=== PATIENT | male | born 1960 | race American Indian/Alaskan Native ===

== ENCOUNTER 2017-03-06 05:48 | Emergency (ER) | payer MEDICARE ==
[2017-03-06 06:29] LABS: Basophils % (Auto) 1.1 % (0.0-1.8); Eosinophils % (Auto) 7.2 % (0.0-4.3); Mean Corpuscular HGB Conc 30 % (32-34); Mean Corpuscular Volume 79 fl (84-94); Platelet Count 254 K/mm3 (140-440); Red Blood Count 5.13 M/mm3 (3.65-5.03); Red Cell Distribution Width 15.1 % (13.2-15.2); White Blood Count 8.2 K/mm3 (4.5-11.0)
[2017-03-06 06:30] LABS: Hematocrit 40.8 % (35.5-45.6); Hemoglobin 12.4 gm/dl (11.8-15.2); Mean Corpuscular Hemoglobin 24 pg (28-32)
[2017-03-06 06:46] LABS: Anion Gap 17 mmol/L; BUN/Creatinine Ratio 18.88; Blood Urea Nitrogen 17 mg/dL (9-20); Calcium 9.4 mg/dL (8.4-10.2); Carbon Dioxide 28 mmol/L (22-30); Chloride 99.2 mmol/L (98-107); Glucose 98 mg/dL (75-100); Potassium 4.3 mmol/L (3.6-5.0); Sodium 140 mmol/L (137-145)
[2017-03-06 10:56] VITALS: BP 135/80
[2017-03-06] MEDS ORDERED: BACTRIM DS PO ONE (10:58)
[2017-03-06] MEDS ORDERED: LASIX PO ONE (10:58)
[2017-03-06] MEDS ORDERED: KEFLEX PO ONE (10:58)
--- NOTE | 2017-03-06 12:23 | Emergency Department Report ---
HPI - General Chief Complaint: Extremity Injury, Lower Time Seen by Provider: 03/06/17 10:42 - HPI HPI: The patient is a 56-year-old male who presents for evaluation of right lower leg pain. The patient reports right lower leg pain for the past 2-3 weeks, constant and severe for the past one day, 2/10 in severity, burning in quality, exacerbated with weightbearing or ambulation. He also has experienced some weeping of clear fluid from the distal lower leg for the past 2 days. He shares that he has a long-standing history of chronic right lower leg ulcers, discoloration, and swelling for months. The patient denies fever, paresthesias , motor deficit in the legs, redness, purulent discharge. ED Past Medical Hx - Past Medical History Hx Asthma: Yes Additional medical history: Morbid Obesity - Surgical History Additional Surgical History: Keloid Removal From Face - Social History Smoking Status: Never Smoker Substance Use Type: None - Medications Home Medications: Home Medications Medication Instructions Recorded Confirmed Last Taken Type Cephalexin [Keflex] 500 mg PO QID #30 capsule 03/06/17 Unknown Rx Furosemide [Lasix TAB] 40 mg PO QDAY #30 tablet 03/06/17 Unknown Rx Sulfamethoxazole/Trimethoprim 1 each PO BID #20 tablet 03/06/17 Unknown Rx [Bactrim DS TAB] ED Review of Systems ROS: Stated complaint: RT LEG PAIN Other details as noted in HPI Constitutional: denies: fever ENT: denies: throat or neck pain Respiratory: denies: cough, shortness of breath Cardiovascular: denies: chest pain Endocrine: denies unexplained weight loss or gain Gastrointestinal: denies: abdominal pain, nausea Genitourinary: denies: dysuria Musculoskeletal: reports leg pain and leg swelling Skin: denies: rash Neurological: denies: headache Hematological/Lymphatic: denies: easy bleeding or easy bruising Psych: denies sadness or hopelessness Physical Exam - Physical Exam Vital Signs: Vital Signs 03/06/17 03/06/17 05:53 10:55 Temperature 98.1 F 98.6 F Pulse Rate 84 94 H Respiratory 18 16 Rate Blood Pressure 201/95 Blood Pressure 135/80 [Right] O2 Sat by Pulse 94 95 Oximetry Physical Exam: General: well-nourished, well-developed, no acute distress Head: Normocephalic, atraumatic Eyes: normal sclera ENT: Mucous membranes are pink and moist Neck: trachea midline, neck supple, No neck stiffness, no cervical adenopathy Respiratory: Breath sounds equal bilaterally, no wheezing, rales, or rhonchi Cardio: S1 and S2 present, no murmurs, rubs, gallops, capillary refill is brisk Abdomen: Normoactive bowel sounds, soft abdomen, no rigidity, no guarding or rebound tenderness Musc: Circumferential purplish discoloration to the bilateral distal lower legs present, consistent with chronic venous insufficiency, ulcers present to the bilateral lower legs, 1+ pitting edema to bilateral lower legs present, bilateral lower legs tender to palpation, mild lateral erythema of the right distal lower leg, no purulent drainage or discharge, distal pulses, sensation, motor function intact in the legs or feet bilaterally. Skin: No rash Neuro: no facial drooping, normal speech Psych: Normal affect ED Course Vital Signs 03/06/17 03/06/17 05:53 10:55 Temperature 98.1 F 98.6 F Pulse Rate 84 94 H Respiratory 18 16 Rate Blood Pressure 201/95 Blood Pressure 135/80 [Right] O2 Sat by Pulse 94 95 Oximetry ED Medical Decision Making - Lab Data Result diagrams: 03/06/17 06:13 03/06/17 06:13 - Medical Decision Making The patient was seen and examined by myself. The patient is placed on a cashier greeter and continuous pulse ox. On initial evaluation, the patient was found to be in no distress. The patient declines pain medicine. The patient is given Lasix for treatment of swelling and Keflex and Bactrim for treatment of cellulitis. The patient was reevaluated and reported that their symptoms were markedly improved. The patient is stable for discharge with outpatient follow-up. The patient is given follow-up and return instructions. The patient expressed understanding and agreed with the plan. The patient is discharged in stable condition. Critical care attestation.: If time is entered above; I have spent that time in minutes in the direct care of this critically ill patient, excluding procedure time. ED Disposition Clinical Impression: Chronic venous insufficiency, Cellulitis of right lower leg, Pain of right lower leg, Localized swelling of both lower legs Disposition: -01 TO HOME OR SELFCARE Is pt being admited?: No Does the pt Need Aspirin: No Condition: Stable Instructions: Cellulitis (ED), Acute Wound Care (ED), Stasis Dermatitis (ED) Prescriptions: Cephalexin [Keflex] 500 mg PO QID #30 capsule Furosemide [Lasix TAB] 40 mg PO QDAY #30 tablet Sulfamethoxazole/Trimethoprim [Bactrim DS TAB] 1 each PO BID #20 tablet Referrals: [facility] [Other] - 3-5 Days [facility] [Provider Group] - 3-5 Days SUN COTA MD [Staff Physician] - 3-5 Days [facility] [Outside] - 3-5 Days Time of Disposition: 12:21
== END 2017-03-06 12:41 | disposition home or self-care (01) ==
LOC: ED 05:48
DX: I87.2 Venous insufficiency (chronic) (peripheral) (principal); L03.115 Cellulitis of right lower limb; J45.909 Unspecified asthma, uncomplicated; E66.01 Morbid (severe) obesity due to excess calories
CPT/HCPCS: 36415; 80048; 85025; 99283

== ENCOUNTER 2017-04-30 08:13 | Outpatient (CLI) | payer MEDICARE ==
[2017-04-30] MEDS ORDERED: XYLOCAINE TOPICAL 4% TP ONE ×2 (09:17→09:21)
[2017-04-30] MEDS ORDERED: AD OINTMENT TP ONE (09:51)
[2017-04-30] MEDS ORDERED: AD OINTMENT TP SCH (10:00)
== END 2017-04-30 08:14 | disposition home or self-care (01) ==
LOC: WOUND 08:13
PROVIDERS: ATTEND Internal Medicine
DX: I87.311 Chronic venous hypertension (idiopathic) with ulcer of right lower extremity (principal); L97.811 Non-pressure chronic ulcer of other part of right lower leg limited to breakdown of skin; E66.01 Morbid (severe) obesity due to excess calories; J45.30 Mild persistent asthma, uncomplicated; Z68.43 Body mass index [BMI] 50.0-59.9, adult; Z87.891 Personal history of nicotine dependence
CPT/HCPCS: 11042; 11045; 11721; 87075; 87076; 87116; 87186; G0463; A6250

== ENCOUNTER 2017-05-07 08:07 | Outpatient (CLI) | payer MEDICARE ==
[2017-05-07] MEDS ORDERED: XYLOCAINE TOPICAL 4% TP ONE ×2 (08:35→08:39)
== END 2017-05-07 08:08 | disposition home or self-care (01) ==
LOC: WOUND 08:07
PROVIDERS: ATTEND Internal Medicine
DX: I87.311 Chronic venous hypertension (idiopathic) with ulcer of right lower extremity (principal); L97.811 Non-pressure chronic ulcer of other part of right lower leg limited to breakdown of skin; E66.01 Morbid (severe) obesity due to excess calories; Z68.43 Body mass index [BMI] 50.0-59.9, adult; Z87.891 Personal history of nicotine dependence

== ENCOUNTER 2017-05-14 08:15 | Outpatient (CLI) | payer MEDICARE ==
[2017-05-14] MEDS ORDERED: XYLOCAINE TOPICAL 4% TP ONE (08:37)
== END 2017-05-14 08:16 | disposition home or self-care (01) ==
LOC: WOUND 08:15
PROVIDERS: ATTEND Internal Medicine
DX: I87.311 Chronic venous hypertension (idiopathic) with ulcer of right lower extremity (principal); L97.811 Non-pressure chronic ulcer of other part of right lower leg limited to breakdown of skin; E66.01 Morbid (severe) obesity due to excess calories; J45.30 Mild persistent asthma, uncomplicated; B35.1 Tinea unguium; Z87.891 Personal history of nicotine dependence; Z68.43 Body mass index [BMI] 50.0-59.9, adult
CPT/HCPCS: 11055

== ENCOUNTER 2017-05-14 09:54 | Outpatient (CLI) | payer MEDICARE ==
--- NOTE | 2017-05-15 07:58 | Vascular Lab Report ---
LOWER EXTREMITY ARTERIAL DUPLEX: REASON FOR EXAM: Peripheral arterial disease/leg pain. COMMENTS ON THE RIGHT: Triphasic waveforms are seen proximally. Triphasic waveforms are seen distally. No significant velocity gradients are identified. No focal significant plaque is identified. Findings are consistent with normal perfusion. Findings are consistent with the ability to heal distal wounds. COMMENTS ON THE LEFT: Triphasic waveforms are seen proximally. Triphasic waveforms are seen distally. No significant velocity gradients are identified. No focal significant plaque is identified. Findings are consistent with normal perfusion. Findings are consistent with the ability to heal distal wounds. IMPRESSION: RIGHT: Essentially normal arterial flow. LEFT:Essentially normal arterial flow.
--- NOTE | 2017-05-15 08:07 | Vascular Lab Report ---
LOWER EXTREMITY VENOUS DUPLEX: REASON FOR EXAM: Pain of the lower extremities. COMMENTS ON THE RIGHT: All veins visualized are freely compressible without evidence of internal echogenicity. Flow is spontaneous and phasic throughout. COMMENTS ON THE LEFT: All veins visualized are freely compressible without evidence of internal echogenicity. Flow is spontaneous and phasic throughout. IMPRESSION: No evidence of acute or chronic deep venous thrombosis in either lower extremity.
== END 2017-05-14 09:55 | disposition home or self-care (01) ==
LOC: VAS 09:54
PROVIDERS: ATTEND Internal Medicine
DX: M79.605 Pain in left leg (principal); M79.604 Pain in right leg
CPT/HCPCS: 93925; 93970

== ENCOUNTER 2017-05-21 08:17 | Outpatient (CLI) | payer MEDICARE ==
[2017-05-21] MEDS ORDERED: XYLOCAINE TOPICAL 4% TP ONE ×2 (08:26→08:29)
== END 2017-05-21 08:18 | disposition home or self-care (01) ==
LOC: WOUND 08:17
PROVIDERS: ATTEND Surgery
DX: I87.311 Chronic venous hypertension (idiopathic) with ulcer of right lower extremity (principal); L97.811 Non-pressure chronic ulcer of other part of right lower leg limited to breakdown of skin; J45.30 Mild persistent asthma, uncomplicated; E66.01 Morbid (severe) obesity due to excess calories; Z68.43 Body mass index [BMI] 50.0-59.9, adult; Z87.891 Personal history of nicotine dependence

== ENCOUNTER 2017-06-04 08:25 | Outpatient (CLI) | payer MEDICARE ==
[2017-06-04] MEDS ORDERED: XYLOCAINE TOPICAL 4% TP ONE ×2 (08:44→11:58)
[2017-06-04] MEDS ORDERED: AD OINTMENT TP ONE (08:44)
[2017-06-04 10:35] LABS: Hematocrit 39.5 % (35.5-45.6); Hemoglobin 11.9 gm/dl (11.8-15.2); Mean Corpuscular HGB Conc 30 % (32-34); Mean Corpuscular Hemoglobin 24 pg (28-32); Mean Corpuscular Volume 78 fl (84-94); Platelet Count 212 K/mm3 (140-440); Red Blood Count 5.04 M/mm3 (3.65-5.03); Red Cell Distribution Width 14.9 % (13.2-15.2); White Blood Count 6.9 K/mm3 (4.5-11.0)
[2017-06-04 11:00] LABS: Alanine Aminotransferase 12 units/L (7-56); Albumin 3.6 g/dL (3.9-5); Albumin/Globulin Ratio 0.8 %; Alkaline Phosphatase 52 units/L (35-129); Anion Gap 17 mmol/L; BUN/Creatinine Ratio 20; Blood Urea Nitrogen 16 mg/dL (9-20); Calcium 8.9 mg/dL (8.4-10.2); Carbon Dioxide 27 mmol/L (22-30); Chloride 101.8 mmol/L (98-107); Glucose 90 mg/dL (75-100); Potassium 4.4 mmol/L (3.6-5.0); Sodium 141 mmol/L (137-145); Total Protein 7.9 g/dL (6.3-8.2)
[2017-06-04] MEDS ORDERED: AD OINTMENT TP SCH (12:00)
== END 2017-06-04 08:26 | disposition home or self-care (01) ==
LOC: WOUND 08:25
PROVIDERS: ATTEND Internal Medicine
DX: I87.311 Chronic venous hypertension (idiopathic) with ulcer of right lower extremity (principal); L97.811 Non-pressure chronic ulcer of other part of right lower leg limited to breakdown of skin; I10 Essential (primary) hypertension; E66.01 Morbid (severe) obesity due to excess calories; J45.30 Mild persistent asthma, uncomplicated; I87.2 Venous insufficiency (chronic) (peripheral); B35.1 Tinea unguium; F17.200 Nicotine dependence, unspecified, uncomplicated; Z68.43 Body mass index [BMI] 50.0-59.9, adult
CPT/HCPCS: 36415; 80053; 84153; 85027; A6250

== ENCOUNTER 2017-06-12 08:56 | Outpatient (CLI) | payer MEDICARE ==
[2017-06-12] MEDS ORDERED: XYLOCAINE TOPICAL 4% TP ONE (09:23)
== END 2017-06-12 08:57 | disposition home or self-care (01) ==
LOC: WOUND 08:56
PROVIDERS: ATTEND Surgery
DX: I87.311 Chronic venous hypertension (idiopathic) with ulcer of right lower extremity (principal); L97.811 Non-pressure chronic ulcer of other part of right lower leg limited to breakdown of skin; I10 Essential (primary) hypertension; E66.01 Morbid (severe) obesity due to excess calories; J45.30 Mild persistent asthma, uncomplicated; B35.1 Tinea unguium; Z68.43 Body mass index [BMI] 50.0-59.9, adult; Z87.891 Personal history of nicotine dependence

== ENCOUNTER 2018-10-22 08:07 | Outpatient (CLI) | payer MEDICARE ==
[2018-10-22] MEDS ORDERED: XYLOCAINE TOPICAL 4% TP ONE (09:00)
[2018-10-22] MEDS ORDERED: AD OINTMENT TP SCH (09:00)
== END 2018-10-22 08:08 | disposition home or self-care (01) ==
LOC: WOUND 08:07
PROVIDERS: ATTEND Surgery
DX: I87.311 Chronic venous hypertension (idiopathic) with ulcer of right lower extremity (principal); L97.811 Non-pressure chronic ulcer of other part of right lower leg limited to breakdown of skin; I89.0 Lymphedema, not elsewhere classified; J45.909 Unspecified asthma, uncomplicated; I87.8 Other specified disorders of veins; B35.1 Tinea unguium; Z87.891 Personal history of nicotine dependence
CPT/HCPCS: 97597; 97598; A6250

== ENCOUNTER 2018-11-07 09:04 | Outpatient (CLI) | payer MEDICARE ==
--- NOTE | 2018-11-07 21:59 | Vascular Lab Report ---
PROCEDURE: VL VENOUS DUPLEX LE RT TECHNIQUE: Duplex Doppler sonography of the right . Foster scale imaging with and without compression, spectral waveform analysis with and without augmentation, and color flow Doppler were employed. HISTORY: Chronic venous hypertension (idiopathic)with ulcer of right lower COMPARISONS: None FINDINGS: Real-time ultrasound of the right leg was performed with attention to the venous vasculatur e. These images demonstrate no evidence of deep venous thrombus in the right common femoral vein, superf icial femoral vein, or popliteal vein. The calf veins were not seen due to patient body habitus and l imited mobility. There is deep venous reflux of the right common femoral vein 3242 ms. No evidence of superficial venous reflux was seen. No DVT in right leg This document is electronically signed by Thaddeus Pryor MD., Nov 07 2018 09:56:52 PM ET
== END 2018-11-07 09:05 | disposition home or self-care (01) ==
LOC: VAS 09:04
PROVIDERS: ATTEND Surgery
DX: I87.311 Chronic venous hypertension (idiopathic) with ulcer of right lower extremity (principal); J45.909 Unspecified asthma, uncomplicated

== ENCOUNTER 2018-11-12 09:06 | Outpatient (CLI) | payer MEDICARE | END 2018-11-12 09:07 | disposition home or self-care (01) | LOC: WOUND 09:06 | PROVIDERS: ATTEND Surgery | DX: I87.311 Chronic venous hypertension (idiopathic) with ulcer of right lower extremity (principal); L97.811 Non-pressure chronic ulcer of other part of right lower leg limited to breakdown of skin; I89.0 Lymphedema, not elsewhere classified; L84 Corns and callosities; I87.8 Other specified disorders of veins; J45.909 Unspecified asthma, uncomplicated; B35.1 Tinea unguium; Z87.891 Personal history of nicotine dependence | CPT/HCPCS: 99214; G0463 ==

== ENCOUNTER 2018-11-26 08:48 | Outpatient (CLI) | payer MEDICARE ==
[2018-11-26] MEDS ORDERED: XYLOCAINE TOPICAL 4% TP ONE (08:52)
== END 2018-11-26 08:49 | disposition home or self-care (01) ==
LOC: WOUND 08:48
PROVIDERS: ATTEND Surgery
DX: I87.311 Chronic venous hypertension (idiopathic) with ulcer of right lower extremity (principal); L97.811 Non-pressure chronic ulcer of other part of right lower leg limited to breakdown of skin; I89.0 Lymphedema, not elsewhere classified; L84 Corns and callosities; I87.8 Other specified disorders of veins; J45.909 Unspecified asthma, uncomplicated; B35.1 Tinea unguium; Z87.891 Personal history of nicotine dependence

== ENCOUNTER 2018-12-03 08:30 | Outpatient (CLI) | payer MEDICARE ==
[2018-12-03] MEDS ORDERED: XYLOCAINE TOPICAL 4% TP ONE (09:00)
== END 2018-12-03 08:31 | disposition home or self-care (01) ==
LOC: WOUND 08:30
PROVIDERS: ATTEND Surgery
DX: I87.311 Chronic venous hypertension (idiopathic) with ulcer of right lower extremity (principal); L97.811 Non-pressure chronic ulcer of other part of right lower leg limited to breakdown of skin; I89.0 Lymphedema, not elsewhere classified; L84 Corns and callosities; I87.8 Other specified disorders of veins; J45.909 Unspecified asthma, uncomplicated; B35.1 Tinea unguium; Z87.891 Personal history of nicotine dependence

== ENCOUNTER 2018-12-10 08:24 | Outpatient (CLI) | payer MEDICARE ==
[2018-12-10] MEDS ORDERED: XYLOCAINE TOPICAL 4% TP ONE (09:00)
[2018-12-10] MEDS ORDERED: AD OINTMENT TP PRN (09:00)
== END 2018-12-10 08:25 | disposition home or self-care (01) ==
LOC: WOUND 08:24
PROVIDERS: ATTEND Surgery
DX: I87.311 Chronic venous hypertension (idiopathic) with ulcer of right lower extremity (principal); L97.811 Non-pressure chronic ulcer of other part of right lower leg limited to breakdown of skin; I89.0 Lymphedema, not elsewhere classified; L84 Corns and callosities; I87.8 Other specified disorders of veins; J45.909 Unspecified asthma, uncomplicated; B35.1 Tinea unguium; Z87.891 Personal history of nicotine dependence
CPT/HCPCS: A6250

== ENCOUNTER 2018-12-17 08:23 | Outpatient (CLI) | payer MEDICARE ==
[2018-12-17] MEDS ORDERED: XYLOCAINE TOPICAL 4% TP ONE (09:00)
== END 2018-12-17 08:24 | disposition home or self-care (01) ==
LOC: WOUND 08:23
PROVIDERS: ATTEND Surgery
DX: I87.311 Chronic venous hypertension (idiopathic) with ulcer of right lower extremity (principal); L97.811 Non-pressure chronic ulcer of other part of right lower leg limited to breakdown of skin; I89.0 Lymphedema, not elsewhere classified; L84 Corns and callosities; I87.8 Other specified disorders of veins; J45.909 Unspecified asthma, uncomplicated; B35.1 Tinea unguium; Z87.891 Personal history of nicotine dependence

== ENCOUNTER 2018-12-31 08:32 | Outpatient (CLI) | payer MEDICARE | END 2018-12-31 08:33 | disposition home or self-care (01) | LOC: WOUND 08:32 | PROVIDERS: ATTEND Surgery | DX: I87.311 Chronic venous hypertension (idiopathic) with ulcer of right lower extremity (principal); L97.811 Non-pressure chronic ulcer of other part of right lower leg limited to breakdown of skin; I89.0 Lymphedema, not elsewhere classified; L84 Corns and callosities; I87.8 Other specified disorders of veins; J45.909 Unspecified asthma, uncomplicated; B35.1 Tinea unguium; Z87.891 Personal history of nicotine dependence | CPT/HCPCS: 99213; G0463 ==

== ENCOUNTER 2020-06-07 08:47 | Observation (INO) | payer OTHER, MEDICARE ==
--- NOTE | 2020-06-07 15:08 | Event Note ---
ED Screening Note ED Screening Note: had a slip and fall two weeks ago and had an abrasion to his RLE which is now infected +drainage, +increased warmth, +edema previously used to see wound care, has an appt on sunday06/14/2020 This initial assessment/diagnostic orders/clinical plan/treatment(s) is/are subject to change based on patients health status, clinical progression and re- assessment by fellow clinical providers in the ED. Further treatment and workup at subsequent clinical providers discretion. Patient/guardian urged not to elope from the ED as their condition may be serious if not clinically assessed and managed. Initial orders include: labs, XR, US
--- NOTE | 2020-06-07 15:52 | XRay Report ---
RIGHT TIBIA AND FIBULA, AP AND LATERAL VIEWS INDICATION: right leg wound. COMPARISON: No relevant prior imaging study available. FINDINGS: At the right knee there is advanced tricompartmental degenerative change, this is in stage of the med ial compartment. Advanced degenerative changes noted at the ankle/hindfoot with advanced flatfoot def ormity. No acute fracture is identified. There is diffuse soft tissue swelling in the right calf. No definite soft tissue gas. IMPRESSION: 1. Diffuse soft tissue swelling, no soft tissue gas or foreign bodies. Signer Name: Fortunato Yen MD Signed: 06/07/2020 3:47 PM Workstation Name: [id number]
[2020-06-07 16:00] LABS: Hematocrit 34.3 % (35.5-45.6); Hemoglobin 10.5 gm/dl (11.8-15.2); Mean Corpuscular HGB Conc 31 % (32-34); Mean Corpuscular Volume 79 fl (84-94); Platelet Count 229 K/mm3 (140-440); Red Blood Count 4.36 M/mm3 (3.65-5.03); Red Cell Distribution Width 17.3 % (13.2-15.2)
[2020-06-07 16:16] LABS: Alanine Aminotransferase 7 units/L (7-56); Albumin 3.2 g/dL (3.9-5); BUN/Creatinine Ratio 23; Blood Urea Nitrogen 21 mg/dL (9-20); Calcium 9.6 mg/dL (8.4-10.2); Hemolysis Index 13
--- NOTE | 2020-06-07 16:19 | Vascular Lab Report ---
DUPLEX DOPPLER LOWER EXTREMITY VEINS, RIGHT INDICATION / CLINICAL INFORMATION: RLE edema and pain. TECHNIQUE: Duplex doppler imaging was performed through the veins of the right lower extremity using venous comp ression and other maneuvers. COMPARISON: None available. FINDINGS: RIGHT COMMON FEMORAL VEIN: Negative. RIGHT FEMORAL VEIN: Negative. RIGHT POPLITEAL VEIN: Negative. RIGHT CALF VEINS: Negative. ADDITIONAL FINDINGS: There is diffuse subcutaneous edema with apparent pitting. IMPRESSION: 1. The exam is limited due to patient body habitus and extensive subcutaneous edema. Accounting for t his, no sonographic evidence for DVT in the right lower extremity. Signer Name: Fortunato Yen MD Signed: 06/07/2020 4:14 PM Workstation Name: [id number]
[2020-06-07 16:43] LABS: Band Neutrophils # (Manual) 0.1 K/mm3; Total Cells Counted 100
[2020-06-07 16:44] LABS: Anisocytosis 1+; Hypochromasia 1+; Large Platelets Few; Platelet Estimate Consistent w Auto
[2020-06-07] MEDS ORDERED: SULFAMETHOXAZOLE/TRIMETHOPRIM 800/160MG DS TAB PO ONE (19:23)
[2020-06-07] MEDS ORDERED: cephALEXin 500 MG CAP PO ONE (19:23)
--- NOTE | 2020-06-07 19:26 | Emergency Department Report ---
- General Chief complaint: Wound/Laceration Stated complaint: WOUND DRAINING RT CALF Time Seen by Provider: 06/07/20 15:03 Source: patient Mode of arrival: Wheelchair Limitations: No Limitations - History of Present Illness Initial comments: This is a 59-year-old male nontoxic, well nourished in appearance, no acute signs of distress presents to the ED with c/o of redness, swelling, and pain to right lower leg. Patient stated he had a fall about 2 weeks ago and caused an abrasion but no follow-up with a provider which then developed the symptoms. Patient stated has chronic right leg cellulites and had seen auto adjudication specialist but that was a year ago. Patient stated has some draining. Patient denies any fever, chills, nausea, vomiting, chest pain, shortness of breath, headache or stiff neck. Patient denies any allergies. MD complaint: other (cellulitis ) -: week(s) Tetanus Up to Date: yes (2016 as per patient) Location: RLE Severity: mild Severity scale (0 -10): 8 Quality: aching Consistency: constant Improves with: none Worsens with: none Context: none Associated symptoms: denies other symptoms Treatments Prior to Arrival: none - Related Data Previous Rx's Medication Instructions Recorded Last Taken Type Furosemide [Lasix TAB] 40 mg PO QDAY #30 tablet 03/06/17 Unknown Rx Sulfamethoxazole/Trimethoprim 1 each PO BID #20 tablet 03/06/17 Unknown Rx [Bactrim DS TAB] cephALEXin [Keflex] 500 mg PO QID #30 capsule 03/06/17 Unknown Rx Allergies Allergy/AdvReac Type Severity Reaction Status Date / Time No Known Allergies Allergy Verified 06/07/20 08:51 Abscess Boil HPI - HPI Chief Complaint: Wound/Laceration Stated Complaint: WOUND DRAINING RT CALF Time Seen by Provider: 06/07/20 15:03 Home Medications: Previous Rx's Medication Instructions Recorded Last Taken Type Furosemide [Lasix TAB] 40 mg PO QDAY #30 tablet 03/06/17 Unknown Rx Sulfamethoxazole/Trimethoprim 1 each PO BID #20 tablet 03/06/17 Unknown Rx [Bactrim DS TAB] cephALEXin [Keflex] 500 mg PO QID #30 capsule 03/06/17 Unknown Rx Allergies/Adverse Reactions: Allergies Allergy/AdvReac Type Severity Reaction Status Date / Time No Known Allergies Allergy Verified 06/07/20 08:51 ED Review of Systems ROS: Stated complaint: WOUND DRAINING RT CALF Other details as noted in HPI Comment: All other systems reviewed and negative Constitutional: denies: chills, fever Eyes: denies: eye pain, eye discharge, vision change ENT: denies: ear pain, throat pain Respiratory: denies: cough, shortness of breath, wheezing Cardiovascular: denies: chest pain, palpitations Endocrine: no symptoms reported Gastrointestinal: denies: abdominal pain, nausea, diarrhea Genitourinary: denies: urgency, dysuria Musculoskeletal: denies: back pain, joint swelling, arthralgia Skin: denies: rash, lesions Neurological: denies: headache, weakness, paresthesias Psychiatric: denies: anxiety, depression Hematological/Lymphatic: denies: easy bleeding, easy bruising ED Past Medical Hx - Past Medical History Hx Asthma: Yes Additional medical history: Morbid Obesity - Surgical History Additional Surgical History: Keloid Removal From Face - Social History Smoking Status: Never Smoker Substance Use Type: None - Medications Home Medications: Home Medications Medication Instructions Recorded Confirmed Last Taken Type Furosemide [Lasix TAB] 40 mg PO QDAY #30 tablet 03/06/17 Unknown Rx Sulfamethoxazole/Trimethoprim 1 each PO BID #20 tablet 03/06/17 Unknown Rx [Bactrim DS TAB] cephALEXin [Keflex] 500 mg PO QID #30 capsule 03/06/17 Unknown Rx ED Physical Exam - General Limitations: No Limitations General appearance: alert, in no apparent distress - Head Head exam: Present: atraumatic, normocephalic - Eye Eye exam: Present: normal appearance - Neck Neck exam: Present: normal inspection, full ROM. Absent: tenderness, meningismus, lymphadenopathy - Respiratory Respiratory exam: Absent: respiratory distress - Cardiovascular Cardiovascular Exam: Present: regular rate - Extremities Exam Extremities exam: Present: normal inspection, full ROM, tenderness, normal capillary refill, pedal edema. Absent: calf tenderness - Expanded Lower Extremity Exam Right Hip exam: Present: normal inspection, full ROM. Absent: tenderness, swelling Upper Leg exam: Present: normal inspection, full ROM. Absent: tenderness, swelling Knee exam: Present: normal inspection, full ROM, full knee extension. Absent: tenderness, swelling, abrasion, laceration, ecchymosis, deformity, crepidus, dislocation, erythema, effusion, pain w/ pronation/supination, posterior draw sign, pain/laxity with valgus, pain/laxity with varus Lower Leg exam: Present: full ROM, tenderness, swelling, erythema. Absent: abrasion, laceration, ecchymosis, deformity, crepidus, dislocation, palpable cord, Abena's sign Ankle exam: Present: normal inspection, full ROM, tenderness, swelling, erythema. Absent: abrasion, laceration, ecchymosis, deformity, crepidus, dislocation, anterior draw sign Foot/Toe exam: Present: normal inspection, full ROM. Absent: tenderness, swelling, abrasion, laceration, ecchymosis, deformity, crepidus, dislocation, erythema, amputation, puncture wound, foreign body, calcaneal tenderness, tenderness at base of 5th metatarsal, nail avulsion, subungual hematoma Neuro vascular tendon exam: Present: no vascular compromise Gait: Positive: observed and limited by pain 1 - cellulitis presents with pustulous with drainage. Area has open about 3 cm x 3 cm open wound. - Back Exam Back exam: Present: normal inspection, full ROM - Neurological Exam Neurological exam: Present: alert, oriented X3 - Psychiatric Psychiatric exam: Present: normal affect, normal mood - Skin Skin exam: Present: warm, dry, intact, normal color. Absent: rash ED Course Vital Signs 06/07/20 06/07/20 06/07/20 08:51 17:00 18:56 Temperature 98.7 F 98.2 F Pulse Rate 94 H 88 Respiratory 22 20 18 Rate Blood Pressure 169/139 211/106 Blood Pressure [Right] O2 Sat by Pulse 97 97 Oximetry 06/07/20 21:19 Temperature Pulse Rate 93 H Respiratory 18 Rate Blood Pressure Blood Pressure 146/81 [Right] O2 Sat by Pulse 96 Oximetry - Reevaluation(s) Reevaluation #1: 06/07/20 19:25 Patient is speaking in full sentences with no signs of distress noted. - Consultations Consultation #1: 06/07/20 19:25 Patient has been consulted with Licha Treviño about patient history, physical exam, and labs and agrees for admission. Consultation #2: 06/07/20 19:44 Patient has been consulted with Dr. Alaniz (general surgery) about patient history, physical exam, and labs and agrees for admission with hospitalist. Consultation #3: 06/07/20 22:24 Patient has been consulted with Dr. Lucero about patient history, physical ex am, and labs and accepts patient to services. ED Medical Decision Making - Lab Data Result diagrams: 06/07/20 15:14 06/07/20 15:14 Lab Results 06/07/20 06/07/20 06/07/20 Range/Units 15:14 15:14 15:14 WBC 6.8 (4.5-11.0) K/mm3 RBC 4.36 (3.65-5.03) M/mm3 Hgb 10.5 L (11.8-15.2) gm/dl Hct 34.3 L (35.5-45.6) % MCV 79 L (84-94) fl MCH 24 L (28-32) pg MCHC 31 L (32-34) % RDW 17.3 H (13.2-15.2) % Plt Count 229 (140-440) K/mm3 Add Manual Diff Complete Total Counted 100 Seg Neuts % (Manual) 61.0 (40.0-70.0) % Band Neutrophils % 1.0 % Lymphocytes % (Manual) 29.0 (13.4-35.0) % Monocytes % (Manual) 5.0 (0.0-7.3) % Eosinophils % (Manual) 4.0 (0.0-4.3) % Nucleated RBC % Not Reportable Seg Neutrophils # Man 4.1 (1.8-7.7) K/mm3 Band Neutrophils # 0.1 K/mm3 Lymphocytes # (Manual) 2.0 (1.2-5.4) K/mm3 Abs React Lymphs (Man) 0.0 K/mm3 Monocytes # (Manual) 0.3 (0.0-0.8) K/mm3 Eosinophils # (Manual) 0.3 (0.0-0.4) K/mm3 Basophils # (Manual) 0.0 (0.0-0.1) K/mm3 Metamyelocytes # 0.0 K/mm3 Myelocytes # 0.0 K/mm3 Promyelocytes # 0.0 K/mm3 Blast Cells # 0.0 K/mm3 WBC Morphology Not Reportable Hypersegmented Neuts Not Reportable Hyposegmented Neuts Not Reportable Hypogranular Neuts Not Reportable Smudge Cells Not Reportable Toxic Granulation Not Reportable Toxic Vacuolation Not Reportable Dohle Bodies Not Reportable Pelger-Huet Anomaly Not Reportable Leah Rods Not Reportable Platelet Estimate Consistent w auto Clumped Platelets Not Reportable Plt Clumps, EDTA Not Reportable Large Platelets Few Giant Platelets Not Reportable Platelet Satelliting Not Reportable Plt Morphology Comment Not Reportable RBC Morphology Not Reportable Dimorphic RBCs Not Reportable Polychromasia Not Reportable Hypochromasia 1+ Poikilocytosis Not Reportable Anisocytosis 1+ Microcytosis Not Reportable Macrocytosis Not Reportable Spherocytes Not Reportable Pappenheimer Bodies Not Reportable Sickle Cells Not Reportable Target Cells Not Reportable Tear Drop Cells Not Reportable Ovalocytes Not Reportable Helmet Cells Not Reportable Singh-Tullos Bodies Not Reportable Brady Rings Not Reportable Katiana Cells Not Reportable Bite Cells Not Reportable Crenated Cell Not Reportable Elliptocytes Not Reportable Acanthocytes (Spur) Not Reportable Rouleaux Not Reportable Hemoglobin C Crystals Not Reportable Schistocytes Not Reportable Malaria parasites Not Reportable Luc Bodies Not Reportable Hem Pathologist Commnt No Sodium 138 (137-145) mmol/L Potassium 4.6 (3.6-5.0) mmol/L Chloride 100.9 (98-107) mmol/L Carbon Dioxide 29 (22-30) mmol/L Anion Gap 13 mmol/L BUN 21 H (9-20) mg/dL Creatinine 0.9 (0.8-1.3) mg/dL Estimated GFR > 60 ml/min BUN/Creatinine Ratio 23 % Glucose 88 (75-100) mg/dL Lactic Acid 1.00 (0.7-2.0) mmol/L Calcium 9.6 (8.4-10.2) mg/dL Total Bilirubin 0.60 (0.1-1.2) mg/dL AST 17 (5-40) units/L ALT 7 (7-56) units/L Alkaline Phosphatase 46 (35-129) units/L Total Protein 8.9 H (6.3-8.2) g/dL Albumin 3.2 L (3.9-5) g/dL Albumin/Globulin Ratio 0.6 % - Radiology Data Referring Physician: RUBIN HERNANDEZ Patient Name: RENO BURTON Date of : 1960 Sex: Male Report Date: 2020-06-07 Report Status: Finalized [facility] [address] [place] [address] XRay Report Signed Patient: RENO BURTON MR#: [id number] : 1960 Acct:[id number] Age/Sex: 59 / M ADM Date: 06/07/20 Loc: ED Attending Dr: Ordering Physician: EFE ESCOTO Date of Service: 06/07/20 Procedure(s): XR tibia fibula 2V RT Accession Number(s): [id number] cc: EFE ESCOTO Fluoro Time In Minutes: RIGHT TIBIA AND FIBULA, AP AND LATERAL VIEWS INDICATION: right leg wound. COMPARISON: No relevant prior imaging study available. FINDINGS: At the right knee there is advanced tricompartmental degenerative change, this is in stage of the medial compartment. Advanced degenerative changes noted at the ankle/hindfoot with advanced flatfoot deformity. No acute fracture is identified. There is diffuse soft tissue swelling in the right calf. No definite soft tissue gas. IMPRESSION: 1. Diffuse soft tissue swelling, no soft tissue gas or foreign bodies. Signer Name: Fortunato Yen MD Signed: 06/07/2020 3:47 PM Workstation Name: [id number] Transcribed By: Dictated By: Fortunato Yen MD Electronically Authenticated By: Fortunato Yen MD Signed Date/Time: 06/07/20 1547 DD/ 1546 TD/TT: Referring Physician: RUBIN HERNANDEZ Patient Name: RENO BURTON Date of : 1960 Sex: Male Report Date: 2020-06-07 Report Status: Finalized [facility] [address] [place] [address] Vascular Lab Report Signed Patient: RENO BURTON MR#: [id number] : 1960 Acct:[id number] Age/Sex: 59 / M ADM Date: 06/07/20 Loc: ED Attendin g Dr: Ordering Physician: EFE ESCOTO Date of Service: 06/07/20 Procedure(s): VL venous duplex LE RT Accession Number(s): [id number] cc: EFE ESCOTO DUPLEX DOPPLER LOWER EXTREMITY VEINS, RIGHT INDICATION / CLINICAL INFORMATION: RLE edema and pain. TECHNIQUE: Duplex doppler imaging was performed through the veins of the right lower extremity using venous compression and other maneuvers. COMPARISON: None available. FINDINGS: RIGHT COMMON FEMORAL VEIN: Negative. RIGHT FEMORAL VEIN: Negative. RIGHT POPLITEAL VEIN: Negative. RIGHT CALF VEINS: Negative. ADDITIONAL FINDINGS: There is diffuse subcutaneous edema with apparent pitting. IMPRESSION: 1. The exam is limited due to patient body habitus and extensive subcutaneous edema. Accounting for this, no sonographic evidence for DVT in the right lower extremity. Signer Name: Fortunato Yen MD Signed: 06/07/2020 4:14 PM Workstation Name: [id number] Transcribed By: Dictated By: Fortunato Yen MD Electronically Authenticated By: Fortunato Yen MD Signed Date/Time: 06/07/201613 DD/ 13 TD/TT: - Medical Decision Making 59-year-old male that presents with right leg cellulitis with drainage. Patient is stable and was examined by me. Patient consulted with Dr. Marquez and Dr. Alaniz which agrees for admission. Patient admitted with hospitalist. IV vancomycin and fluids has been administered. At time of admission, the patient does not seem toxic or ill in appearance. No acute signs of distress noted. Patient agrees to admission treatment plan of care. No further questions noted by the patient. Critical care attestation.: If time is entered above; I have spent that time in minutes in the direct care of this critically ill patient, excluding procedure time. ED Disposition Clinical Impression: Cellulitis of right lower leg Disposition: OP ADMIT IP TO THIS HOSP Is pt being admited?: Yes Condition: Stable Referrals: PRIMARY CARE, [Primary Care Provider] - 3-5 Days Time of Disposition: 19:50
[2020-06-07] MEDS ORDERED: VANCOMYCIN/NS 1 GM/250 ML 1 GM/250 ML BAG IV ONE (19:38)
[2020-06-07] MEDS ORDERED: VANCOMYCIN 2,000 MG in SODIUM CHLORIDE 0.9% 500 ML 500 ML IV ONE (20:00)
[2020-06-07] MEDS ORDERED: VANCOMYCIN PHARMACY TO DOSE IV SCH (23:45)
[2020-06-07] MEDS ORDERED: MORPHINE 2 MG/1 ML INJ IV PRN (23:57)
[2020-06-07] MEDS ORDERED: ONDANSETRON 4 MG/2 ML INJ IV PRN (23:57)
[2020-06-07] MEDS ORDERED: MAGNESIUM HYDROXIDE (MOM) ORAL LIQD UDC PO PRN (23:57)
--- NOTE | 2020-06-08 00:04 | History and Physical Report ---
History of Present Illness Date of examination: 06/07/20 Date of admission: 06/07/20 22:34 Chief complaint: Right lower extremity swelling Wound History of present illness: 59-year-old male with known history of asthma ,morbid obesity and chronic leg wound presenting to the emergency room today complaining of redness swelling and pain of the right lower extremity. He had a fall about 2 weeks ago which caused an abrasion over the light right lower extremity. He has not been following up in the wound care clinic lately and last follow-up was about a year ago. He has noticed some drainage from the wound. Patient denies any fever or chills, no nausea vomiting, no chest pain or shortness of breath, no abdominal pain, no hematuria or dysuria. He denies any headache or dizziness. Work-up in the emergency room today ultrasound of the right lower extremity was negative for DVT. X-ray of the right lower extremity reveals:. Diffuse soft tissue swelling, no soft tissue gas or foreign bodies. Patient admitted for cellulitis/wound on right lower extremity. He has been started on empiric IV antibiotics. Past History Past Medical History: other (Morbid obesity, asthma) Past Surgical History: Other (Keloid removal of face) Social history: no significant social history Medications and Allergies Allergies Allergy/AdvReac Type Severity Reaction Status Date / Time No Known Allergies Allergy Verified 06/07/20 08:51 Home Medications Medication Instructions Recorded Confirmed Last Taken Type Furosemide [Lasix TAB] 40 mg PO QDAY #30 tablet 03/06/17 Unknown Rx Sulfamethoxazole/Trimethoprim 1 each PO BID #20 tablet 03/06/17 Unknown Rx [Bactrim DS TAB] cephALEXin [Keflex] 500 mg PO QID #30 capsule 03/06/17 Unknown Rx Active Meds: Active Medications Acetaminophen (Acetaminophen 325 Mg Tab) 650 mg PO Q4H PRN PRN Reason: Pain MILD(1-3)/Fever >100.5/[facility] Magnesium Hydroxide (Magnesium Hydroxide (Mom) Oral Liqd Udc) 30 ml PO Q4H PRN PRN Reason: Constipation Morphine Sulfate (Morphine 2 Mg/1 Ml Inj) 2 mg IV Q4H PRN PRN Reason: Pain, Moderate (4-6) Ondansetron HCl (Ondansetron 4 Mg/2 Ml Inj) 4 mg IV Q8H PRN PRN Reason: Nausea And Vomiting Sodium Chloride (Sodium Chloride 0.9% 10 Ml Flush Syringe) 10 ml IV BID JONATHAN Sodium Chloride (Sodium Chloride 0.9% 10 Ml Flush Syringe) 10 ml IV PRN PRN PRN Reason: LINE FLUSH Review of Systems Constitutional: no fever, no chills Ears, nose, mouth and throat: no nasal congestion, no sore throat Cardiovascular: no chest pain, no palpitations Respiratory: no cough, no shortness of breath Gastrointestinal: no abdominal pain, no nausea, no vomiting, no diarrhea Genitourinary Male: no dysuria, no hematuria, no flank pain, no nocturia Musculoskeletal: no neck pain, no low back pain Integumentary: no rash, no pruritis Neurological: no headaches, no convulsions Psychiatric: no anxiety, no depression Exam - Constitutional Vitals: Temp Pulse Resp BP Pulse Ox 98.2 F 93 H 18 146/81 96 06/07/20 17:00 06/07/20 21:19 06/07/20 21:19 06/07/20 21:19 06/07/20 21:19 General appearance: Present: no acute distress, well-nourished, obese - EENT Eyes: Present: PERRL, EOM intact. Absent: scleral icterus ENT: hearing intact, clear oral mucosa, dentition normal - Neck Neck: Present: supple, normal ROM - Respiratory Respiratory effort: normal Respiratory: bilateral: CTA - Cardiovascular Rhythm: regular Heart Sounds: Present: S1 & S2. Absent: systolic murmur, diastolic murmur, rub - Extremities Extremities: no ischemia, pulses intact, pulses symmetrical, normal temperature, Full ROM Extremity abnormal: edema (2+ bilaterally), ulceration (On right leg,open wound on posterior and medial distal 1/3 of right leg.) Peripheral Pulses: within normal limits - Abdominal General gastrointestinal: Present: soft, non-tender, distended, normal bowel sounds. Absent: mass - Integumentary Integumentary: Present: clear, warm, dry. Absent: rash - Musculoskeletal Musculoskeletal: strength equal bilaterally - Psychiatric Psychiatric: appropriate mood/affect, intact judgment & insight, memory intact, cooperative - Neurologic Neurologic: CNII-XII intact, no focal deficits, moves all extremities Results - Labs CBC & Chem 7: 06/07/20 15:14 06/07/20 15:14 Labs: Abnormal lab results 06/07/20 06/07/20 Range/Units 15:14 15:14 Hgb 10.5 L (11.8-15.2) gm/dl Hct 34.3 L (35.5-45.6) % MCV 79 L (84-94) fl MCH 24 L (28-32) pg MCHC 31 L (32-34) % RDW 17.3 H (13.2-15.2) % BUN 21 H (9-20) mg/dL Total Protein 8.9 H (6.3-8.2) g/dL Albumin 3.2 L (3.9-5) g/dL Assessment and Plan - Patient Problems (1) Cellulitis of right lower leg Current Visit: Yes Status: Acute Plan to address problem: Patient commenced on empiric IV antibiotics. We will place consult to wound care team and surgery for evaluation and recomm endation. (2) DVT prophylaxis Current Visit: Yes Status: Acute Plan to address problem: Patient placed on sequential compression device. (3) Full code status Current Visit: Yes Status: Acute Plan to address problem: Patient is a full code.
[2020-06-08 06:24] LABS: Basophils % (Auto) 0.4 % (0.0-1.8); Eosinophils # (Auto) 0.4 K/mm3 (0.0-0.4); Eosinophils % (Auto) 6.2 % (0.0-4.3); Hematocrit 30.3 % (35.5-45.6); Hemoglobin 9.3 gm/dl (11.8-15.2); Lymphocytes # (Auto) 1.3 K/mm3 (1.2-5.4); Lymphocytes % (Auto) 18.6 % (13.4-35.0); Mean Corpuscular HGB Conc 31 % (32-34); Mean Corpuscular Volume 78 fl (84-94); Monocytes # (Auto) 0.5 K/mm3 (0.0-0.8); Monocytes % (Auto) 6.7 % (0.0-7.3); Platelet Count 215 K/mm3 (140-440); Red Blood Count 3.89 M/mm3 (3.65-5.03); Red Cell Distribution Width 17.3 % (13.2-15.2)
[2020-06-08 06:33] LABS: INR 1.04 (0.87-1.13)
[2020-06-08 06:36] LABS: BUN/Creatinine Ratio 24; Blood Urea Nitrogen 24 mg/dL (9-20); Calcium 9.3 mg/dL (8.4-10.2); Hemolysis Index 1
[2020-06-08] MEDS: VANCOMYCIN 2,000 MG in SODIUM CHLORIDE 0.9% 500 ML 500 ML IV SCH ×2 (09:36→22:19)
[2020-06-08] MEDS: ACETAMINOPHEN 325 MG TAB PO PRN ×3 (09:43→22:18)
--- NOTE | 2020-06-08 17:05 | Progress Note ---
Assessment and Plan - Patient Problems (1) Cellulitis of right lower leg Current Visit: Yes Status: Acute Plan to address problem: Continue IV antibiotics Wound care (2) DVT prophylaxis Current Visit: Yes Status: Acute Plan to address problem: On heparin and GI prophylaxis (3) Full code status Current Visit: Yes Status: Acute Subjective Date of service: 06/08/20 Principal diagnosis: Right lower extremity cellulitis Interval history: 59-year-old male with known history of asthma ,morbid obesity and chronic leg wound presenting to the emergency room today complaining of redness swelling and pain of the right lower extremity. He had a fall about 2 weeks ago which caused an abrasion over the light right lower extremity. He has not been following up in the wound care clinic lately and last follow-up was about a year ago. He has noticed some drainage from the wound. Patient denies any fever or chills, no nausea vomiting, no chest pain or shortness of breath, no abdominal pain, no hematuria or dysuria. He denies any headache or dizziness. Work-up in the emergency room today ultrasound of the right lower extremity was negative for DVT. X-ray of the right lower extremity reveals:. Diffuse soft tissue swelling, no soft tissue gas or foreign bodies. Patient admitted for cellulitis/wound on right lower extremity. He has been started on empiric IV antibiotics. Day 2 Patient doing slightly better Objective - Constitutional Vitals: Vital Signs - 12hr 06/08/20 06/08/20 06/08/20 05:53 07:43 09:00 Temperature 99.1 F 99.2 F Pulse Rate 88 88 96 H Respiratory 18 18 Rate Blood Pressure 132/62 146/64 O2 Sat by Pulse 94 93 98 Oximetry 06/08/20 06/08/20 06/08/20 10:43 11:59 16:40 Temperature 98.4 F 98.3 F Pulse Rate 88 84 Respiratory 18 18 18 Rate Blood Pressure 96/52 149/71 O2 Sat by Pulse 93 98 Oximetry General appearance: Present: no acute distress, well-nourished - EENT Eyes: PERRL, EOM intact ENT: hearing intact, clear oral mucosa Ears: bilateral: normal - Neck Neck: supple, normal ROM - Respiratory Respiratory effort: normal Respiratory: bilateral: CTA - Breasts Breasts: normal, other (edema (2+ bilaterally), ulceration (On right leg,open wound on posterior and medial distal 1/3 of right leg.)) - Cardiovascular Heart rate: 78 Rhythm: regular Heart Sounds: Present: S1 & S2. Absent: gallop, rub Extremities: pulses intact, No edema, normal color, Full ROM Extremity abnormal: other (Left lower extremity wound with cellulitis) - Gastrointestinal General gastrointestinal: Present: soft, non-tender, non-distended, normal bowel sounds - Genitourinary Male genitourinary: normal - Integumentary Integumentary: clear, warm, dry - Musculoskeletal Musculoskeletal: 1, strength equal bilaterally - Neurologic Neurologic: moves all extremities - Psychiatric Psychiatric: memory intact, appropriate mood/affect, intact judgment & insight - Labs CBC & Chem 7: 06/08/20 05:38 06/08/20 05:38 Labs: Abnormal lab results 06/08/20 06/08/20 Range/Units 05:38 05:38 Hgb 9.3 L (11.8-15.2) gm/dl Hct 30.3 L (35.5-45.6) % MCV 78 L (84-94) fl MCH 24 L (28-32) pg MCHC 31 L (32-34) % RDW 17.3 H (13.2-15.2) % Eos % (Auto) 6.2 H (0.0-4.3) % BUN 24 H (9-20) mg/dL Glucose 106 H (75-100) mg/dL
[2020-06-09] MEDS: AMPICILLIN/SULBACTA 3GM/100ML 3 GM/100 ML BAG IV SCH ×3 (00:24→12:15)
[2020-06-09] MEDS: ACETAMINOPHEN 325 MG TAB PO PRN ×2 (08:35→19:49)
[2020-06-09] MEDS: VANCOMYCIN 2,000 MG in SODIUM CHLORIDE 0.9% 500 ML 500 ML IV SCH ×2 (09:50→22:00)
[2020-06-10] MEDS: AMPICILLIN/SULBACTA 3GM/100ML 3 GM/100 ML BAG IV SCH ×5 (06:00→18:17)
[2020-06-10] MEDS: ACETAMINOPHEN 325 MG TAB PO PRN (11:16)
--- NOTE | 2020-06-10 11:31 | Consultation ---
History of Present Illness Consult date: 06/10/20 - History of present illness History of present illness: 59 yo male admitted with cellulitis of his RLE related to his chronic venous stasis ulcerations. He states that his condition is much improved c/w admission. Past History Past Medical History: other (Morbid obesity, asthma) Past Surgical History: Other (Keloid removal of face) Social history: no significant social history Medications and Allergies Allergies Allergy/AdvReac Type Severity Reaction Status Date / Time No Known Allergies Allergy Verified 06/07/20 08:51 Home Medications Medication Instructions Recorded Confirmed Last Taken Type Furosemide [Lasix TAB] 40 mg PO QDAY #30 tablet 03/06/17 06/08/20 Unknown Rx Sulfamethoxazole/Trimethoprim 1 each PO BID #20 tablet 03/06/17 06/08/20 Unknown Rx [Bactrim DS TAB] cephALEXin [Keflex] 500 mg PO QID #30 capsule 03/06/17 06/08/20 Unknown Rx Active Meds: Active Medications Acetaminophen (Acetaminophen 325 Mg Tab) 650 mg PO Q4H PRN PRN Reason: Pain MILD(1-3)/Fever >100.5/[facility] Last Admin: 06/10/20 11:16 Dose: 650 mg Documented by: Vancomycin HCl 2,000 mg/ (Sodium Chloride) 540 mls @ 250 mls/hr IV Q12H [facility] Last Admin: 06/09/20 22:00 Dose: Not Given Documented by: Ampicillin Sodium/Sulbactam Sodium (Unasyn/Ns 3 Gm/100 Ml) 3 gm in 100 mls @ 100 mls/hr IV Q6HR [facility]; Protocol Last Admin: 06/10/20 11:17 Dose: 100 mls/hr Documented by: Magnesium Hydroxide (Magnesium Hydroxide (Mom) Oral Liqd Udc) 30 ml PO Q4H PRN PRN Reason: Constipation Morphine Sulfate (Morphine 2 Mg/1 Ml Inj) 2 mg IV Q4H PRN PRN Reason: Pain, Moderate (4-6) Ondansetron HCl (Ondansetron 4 Mg/2 Ml Inj) 4 mg IV Q8H PRN PRN Reason: Nausea And Vomiting Sodium Chloride (Sodium Chloride 0.9% 10 Ml Flush Syringe) 10 ml IV BID [facility] Last Admin: 06/09/20 12:15 Dose: 10 ml Documented by: Sodium Chloride (Sodium Chloride 0.9% 10 Ml Flush Syringe) 10 ml IV PRN PRN PRN Reason: LINE FLUSH Review of Systems All systems: negative (none) Exam Vital Signs Temp Pulse Resp BP Pulse Ox 98.7 F 94 H 22 169/139 97 06/07/20 08:51 06/07/20 08:51 06/07/20 08:51 06/07/20 08:51 06/07/20 08:51 - General physical appearance Positive: well developed, well nourished, no distress, obese - Eyes Positive: PERRL, normal occular movement - ENT Positive: normal pinna, normal nares, normal mucosa, no hearing loss, no congestion - Neck Positive: no masses, no bruits, trachea midline, no venous distension - Respiratory Positive: normal expansion, normal respiratory effort, clear to auscultation - Cardiovascular Rhythm: regular Heart Sounds: Present: S1 & S2. Absent: rub, click - Extremities Extremities: no ischemia, pulses symmetrical, No edema - Breasts Breasts: normal, no mass, no skin changes - Abdomen Abdomen: Present: soft, bowel sounds normal. Absent: tender, distended Hernia: none - Genitourinary Male Genitourinary: deferred - Integumentary no rash, no growths, other (Chronic edema and hyperpigmentation of right leg with clean, very superficial ulcerations of the right medial and posterior leg. Abena's sign is negative.) - Neurologic Neurologic: alert and oriented to time, place and person, motor strength and sensation are grossly intact - Musculoskeletal normal gait, normal posture - Psychiatric Psychiatric: appropriate mood/affect, intact judgment & insight Results - Labs 06/08/20 05:38 06/08/20 05:38 Abnormal lab results 06/09/20 Range/Units 20:43 Vancomycin Trough 28.7 H (5.0-20.0) ug/mL - Imaging Additional studies: Venous doppler of RLE reviewed. Assessment and Plan - Patient Problems (1) Chronic venous hypertension w/ulcer and inflammation involv right side Current Visit: Yes Status: Acute Plan to address problem: 1) Pt educated re the importance of elevating his RLE as much as possible. 2) Local wound care. Pt can f/u in the Wound clinic. 3) Pt can be discharged from my perspective.
[2020-06-10] MEDS: VANCOMYCIN 2,000 MG in SODIUM CHLORIDE 0.9% 500 ML 500 ML IV SCH (14:14)
[2020-06-10 14:24] LABS: BUN/Creatinine Ratio 16; Blood Urea Nitrogen 18 mg/dL (9-20); Calcium 8.9 mg/dL (8.4-10.2); Hemolysis Index 2
[2020-06-10] MEDS: HYDROmorphone 1 MG/1 ML INJ IV PRN (15:23)
[2020-06-11] MEDS: AMPICILLIN/SULBACTA 3GM/100ML 3 GM/100 ML BAG IV SCH ×2 (01:35→08:31)
[2020-06-11] MEDS: HYDROmorphone 1 MG/1 ML INJ IV PRN (02:08)
[2020-06-11] MEDS: ACETAMINOPHEN 325 MG TAB PO PRN ×2 (02:12→07:46)
[2020-06-11 07:58] VITALS: BP 138/69
--- NOTE | 2020-06-11 08:07 | Discharge Summary ---
Providers - Providers Date of Admission: 06/07/20 22:34 Date of discharge: 06/10/20 Attending physician: ABBIE CHOI 06/07/20 21:50 Consult to Physician [CONS] Urgent Comment: SUHA Sampson spoke with Dr. Alaniz @ 194 Consulting Provider: APRIL ALANIZ Physician Instructions: Reason For Exam: cellulitis 06/07/20 23:59 Consult to Wound/ET Nurse [CONS] Routine Reason For Exam: wound eval Primary care physician: [employer] Hospitalization Condition: Stable Hospital course: 59-year-old male with known history of asthma ,morbid obesity and chronic leg wound presenting to the emergency room today complaining of redness swelling and pain of the right lower extremity. He had a fall about 2 weeks ago which caused an abrasion over the light right lower extremity. He has not been following up in the wound care clinic lately and last follow-up was about a year ago. He has noticed some drainage from the wound. Patient denies any fever or chills, no nausea vomiting, no chest pain or shortness of breath, no abdominal pain, no hematuria or dysuria. He denies any headache or dizziness. Work-up in the emergency room today ultrasound of the right lower extremity was negative for DVT. X-ray of the right lower extremity reveals:. Diffuse soft tissue swelling, no soft tissue gas or foreign bodies. Patient admitted for cellulitis/wound on right lower extremity. He has been started on empiric IV antibiotics. Day 2 Patient doing slightly better Day 3 On IV abx Day 4 59 yo male admitted with cellulitis of his RLE related to his chronic venous stasis ulcerations. He states that his condition is much improved c/w admission. (1) Chronic venous hypertension w/ulcer and inflammation involv right side Current Visit: Yes Status: Acute Plan to address problem: 1) Pt educated re the importance of elevating his RLE as much as possible. 2) Local wound care. Pt can f/u in the Wound clinic. 3) Pt can be discharged from my perspective. Disposition: - TO HOME OR SELFCARE - Discharge Diagnoses (1) Cellulitis of right lower leg Status: Acute (2) DVT prophylaxis Status: Acute (3) Full code status Status: Acute Core Measure Documentation - Palliative Care Palliative Care/ Comfort Measures: Not Applicable - Core Measures Any of the following diagnoses?: none Exam - Constitutional Vitals: Temp Pulse Resp BP Pulse Ox 98.9 F 73 20 138/69 95 06/11/20 07:31 06/11/20 07:31 06/11/20 07:31 06/11/20 07:31 06/11/20 07:58 General appearance: Present: no acute distress, well-nourished - EENT Eyes: Present: PERRL ENT: hearing intact, clear oral mucosa - Neck Neck: Present: supple, normal ROM - Respiratory Respiratory effort: normal Respiratory: bilateral: CTA - Cardiovascular Rhythm: regular (78) Heart Sounds: Present: S1 & S2. Absent: rub, click - Extremities Extremities: pulses symmetrical, No edema, abnormal (RLE ulcer) Peripheral Pulses: within normal limits - Abdominal General gastrointestinal: Present: soft, non-tender, non-distended, normal bowel sounds Male genitourinary: Present: normal - Integumentary Integumentary: Present: clear, warm, dry - Musculoskeletal Musculoskeletal: gait normal, strength equal bilaterally - Psychiatric Psychiatric: appropriate mood/affect, intact judgment & insight - Neurologic Neurologic: CNII-XII intact, moves all extremities Plan Activity: no restrictions Diet: low salt Follow up with: IZA SORENSON MD [Primary Care Provider] - 3-5 Days APRIL ALANIZ MD [Staff Physician] - 7 Days
--- NOTE | 2020-06-11 08:07 | Progress Note ---
Assessment and Plan - Patient Problems (1) Cellulitis of right lower leg Current Visit: Yes Status: Acute Plan to address problem: Continue IV antibiotics Wound care (2) DVT prophylaxis Current Visit: Yes Status: Acute Plan to address problem: On heparin and GI prophylaxis (3) Full code status Current Visit: Yes Status: Acute Subjective Date of service: 06/09/20 Principal diagnosis: Right lower extremity cellulitis Interval history: 59-year-old male with known history of asthma ,morbid obesity and chronic leg wound presenting to the emergency room today complaining of redness swelling and pain of the right lower extremity. He had a fall about 2 weeks ago which caused an abrasion over the light right lower extremity. He has not been following up in the wound care clinic lately and last follow-up was about a year ago. He has noticed some drainage from the wound. Patient denies any fever or chills, no nausea vomiting, no chest pain or shortness of breath, no abdominal pain, no hematuria or dysuria. He denies any headache or dizziness. Work-up in the emergency room today ultrasound of the right lower extremity was negative for DVT. X-ray of the right lower extremity reveals:. Diffuse soft tissue swelling, no soft tissue gas or foreign bodies. Patient admitted for cellulitis/wound on right lower extremity. He has been started on empiric IV antibiotics. Day 2 Patient doing slightly better Day 3 On IV abx Objective - Constitutional Vitals: Vital Signs - 12hr 06/10/20 06/11/20 06/11/20 23:40 04:54 07:31 Temperature 98.3 F 98.2 F 98.9 F Pulse Rate 86 79 73 Respiratory 20 20 20 Rate Blood Pressure 130/63 151/78 138/69 O2 Sat by Pulse 95 94 92 Oximetry 06/11/20 07:58 Temperature Pulse Rate Respiratory Rate Blood Pressure O2 Sat by Pulse 95 Oximetry General appearance: Present: no acute distress, well-nourished - EENT Eyes: PERRL, EOM intact ENT: hearing intact, clear oral mucosa Ears: bilateral: normal - Neck Neck: supple, normal ROM - Respiratory Respiratory effort: normal Respiratory: bilateral: CTA - Breasts Breasts: normal - Cardiovascular Heart rate: 78 Rhythm: regular Heart Sounds: Present: S1 & S2. Absent: gallop, rub Extremities: pulses intact, No edema, normal color, Full ROM Extremity abnormal: other (Ulcer LE) - Gastrointestinal General gastrointestinal: Present: soft, non-tender, non-distended, normal bowel sounds - Genitourinary Male genitourinary: normal - Integumentary Integumentary: clear, warm, dry - Musculoskeletal Musculoskeletal: 1, strength equal bilaterally - Neurologic Neurologic: moves all extremities - Psychiatric Psychiatric: memory intact, appropriate mood/affect, intact judgment & insight - Labs CBC & Chem 7: 06/08/20 05:38 06/10/20 13:18 Labs: Abnormal lab results 06/10/20 Range/Units 13:18 Carbon Dioxide 32 H (22-30) mmol/L Glucose 110 H (75-100) mg/dL
== END 2020-06-11 10:59 | disposition home or self-care (01) ==
LOC: ED 08:47 → INTOOBSV 22:34 → 3A 22:34 → 3B-SURG 22:41
PROVIDERS: ADMIT Internal Medicine Geriatric Medicine; ATTEND Hospitalist
DX: L03.115 Cellulitis of right lower limb (principal); I87.031 Postthrombotic syndrome with ulcer and inflammation of right lower extremity; J45.909 Unspecified asthma, uncomplicated; E66.01 Morbid (severe) obesity due to excess calories; Z98.890 Other specified postprocedural states; Z68.43 Body mass index [BMI] 50.0-59.9, adult
CPT/HCPCS: 36415; 73590; 80048; 80053; 80202; 82140; 85025; 85610; 87040; 87076; 87116; 87186; 93971; 96365; 96366; 96367; 96375; 96376; 99285; G0378; J0295; J1170; J3370; J7040; 85007

== ENCOUNTER 2020-06-14 09:53 | Outpatient (CLI) | payer OTHER, MEDICARE ==
[2020-06-14] MEDS ORDERED: LIDOCAINE (4%) 40 MG/ML TOPICAL SOLN 50 ML BOTTLE TP ONE (10:11)
== END 2020-06-14 09:54 | disposition home or self-care (01) ==
LOC: WOUND 09:53
PROVIDERS: ATTEND Surgery
DX: L97.812 Non-pressure chronic ulcer of other part of right lower leg with fat layer exposed (principal); L84 Corns and callosities; I87.2 Venous insufficiency (chronic) (peripheral); R26.89 Other abnormalities of gait and mobility; B35.1 Tinea unguium; I10 Essential (primary) hypertension; J44.9 Chronic obstructive pulmonary disease, unspecified; Z87.891 Personal history of nicotine dependence
CPT/HCPCS: 11042; 11045; G0463; 99205; 99215

== ENCOUNTER 2020-08-11 14:03 | Outpatient (CLI) | payer MEDICARE ==
[2020-08-11] MEDS ORDERED: LIDOCAINE (4%) 40 MG/ML TOPICAL SOLN 50 ML BOTTLE TP ONE (14:42)
== END 2020-08-11 14:04 | disposition home or self-care (01) ==
LOC: WOUND 14:03
PROVIDERS: ATTEND Surgery
DX: I87.311 Chronic venous hypertension (idiopathic) with ulcer of right lower extremity (principal); L97.812 Non-pressure chronic ulcer of other part of right lower leg with fat layer exposed; R26.89 Other abnormalities of gait and mobility; B35.1 Tinea unguium; I10 Essential (primary) hypertension; J45.909 Unspecified asthma, uncomplicated; Z87.891 Personal history of nicotine dependence

== ENCOUNTER 2020-08-18 14:36 | Outpatient (CLI) | payer MEDICARE ==
[2020-08-18] MEDS ORDERED: LIDOCAINE (4%) 40 MG/ML TOPICAL SOLN 50 ML BOTTLE TP ONE (15:38)
== END 2020-08-18 14:37 | disposition home or self-care (01) ==
LOC: WOUND 14:36
PROVIDERS: ATTEND Surgery
DX: L97.812 Non-pressure chronic ulcer of other part of right lower leg with fat layer exposed (principal); I87.311 Chronic venous hypertension (idiopathic) with ulcer of right lower extremity; R26.89 Other abnormalities of gait and mobility; B35.1 Tinea unguium; I10 Essential (primary) hypertension; J45.909 Unspecified asthma, uncomplicated; Z87.891 Personal history of nicotine dependence

== ENCOUNTER 2020-08-25 09:39 | Outpatient (CLI) | payer MEDICARE ==
[2020-08-25] MEDS ORDERED: LIDOCAINE (4%) 40 MG/ML TOPICAL SOLN 50 ML BOTTLE TP ONE (09:54)
== END 2020-08-25 09:40 | disposition home or self-care (01) ==
LOC: WOUND 09:39
PROVIDERS: ATTEND Surgery
DX: I87.311 Chronic venous hypertension (idiopathic) with ulcer of right lower extremity (principal); L97.812 Non-pressure chronic ulcer of other part of right lower leg with fat layer exposed; R26.89 Other abnormalities of gait and mobility; B35.1 Tinea unguium; I10 Essential (primary) hypertension; J45.909 Unspecified asthma, uncomplicated; Z87.891 Personal history of nicotine dependence

== ENCOUNTER 2020-08-25 11:50 | Emergency (ER) | payer MEDICARE ==
--- NOTE | 2020-08-25 12:31 | Emergency Department Report ---
Chief Complaint: High BP Stated Complaint: BLOOD PRESSURE CHECK Time Seen by Provider: 08/25/20 12:29 - HPI History of Present Illness: Mr. Wilhelm is a pleasant 60-year-old obese male that is sent to us from the wound care center today for his elevated blood pressure. On arrival blood pressure is as recorded. He has no headache. He has no chest pain he has no shortness of breath. It is quite possible that Mr. Betancourt's given his obesity has hypertension however at the current time he is not hypertensive he is not symptomatic and requires no treatment. We have educated Mr. Wilhelm on recording his blood pressure daily and taking it to his primary care so that they can evaluate the need for blood pressure medicines. He is also been encouraged to continue his weight loss. - ROS Review of Systems: No complaints - Exam Vital Signs: Vital Signs 08/25/20 12:28 Temperature 97.8 F Pulse Rate 83 Respiratory 20 Rate Blood Pressure 151/110 [Right] O2 Sat by Pulse 96 Oximetry Physical Exam: Alert and oriented x4. Obese. Currently getting wound care for an acute on chronic wound. No chest pain or shortness of breath. S1-S2 lungs are clear. Abdomen obese nontender. MSE screening note: Focused history and physical exam performed. Due to findings the following was ordered: Patient blood pressure checked in the emergency room. He has no symptoms and requires no treatment at this time. See discharge summary. Patient discussed with doctor:: [facility] Disposition for MSE Clinical Impression: Blood pressure check Disposition: Z-07 MED SCREENING EXAM-LEFT Is pt being admited?: No Does the pt Need Aspirin: No Condition: Stable Additional Instructions: MONITOR YOUR BLOOD PRESSURE- RECORD IT DAILY MAKE AN APPOINTMENT WITH PCP TAKE YOUR BP LOG WITH YOU TO THE PCP THEY WILL GIVE YOU MEDS IF NEEDED REFERRAL TO PCP ALSO GIVEN BELOW CONTINUE YOUR WEIGHT LOSS - IT WILL HELP YOUR BLOOD PRESSURE NO FRIED FOOD OR FAST FOOD LIMIT SALT DRINK A LOT OF WATER Referrals: GABE JONES MD [Staff Physician] - 3-5 Days Time of Disposition: 12:29
[2020-08-25 12:34] VITALS: BP 169/81
== END 2020-08-25 12:47 | disposition left against medical advice (07) ==
LOC: ED 11:50
DX: Z01.30 Encounter for examination of blood pressure without abnormal findings (principal); Z53.21 Procedure and treatment not carried out due to patient leaving prior to being seen by health care provider

== ENCOUNTER 2020-09-01 09:37 | Outpatient (CLI) | payer MEDICARE ==
[2020-09-01] MEDS ORDERED: LIDOCAINE (4%) 40 MG/ML TOPICAL SOLN 50 ML BOTTLE TP ONE (10:00)
== END 2020-09-01 09:38 | disposition home or self-care (01) ==
LOC: WOUND 09:37
PROVIDERS: ATTEND Surgery
DX: I87.311 Chronic venous hypertension (idiopathic) with ulcer of right lower extremity (principal); L97.812 Non-pressure chronic ulcer of other part of right lower leg with fat layer exposed; R26.89 Other abnormalities of gait and mobility; B35.1 Tinea unguium; I10 Essential (primary) hypertension; J45.909 Unspecified asthma, uncomplicated; Z87.891 Personal history of nicotine dependence

== ENCOUNTER 2020-09-22 09:05 | Outpatient (CLI) | payer MEDICARE ==
[2020-09-22] MEDS ORDERED: LIDOCAINE (4%) 40 MG/ML TOPICAL SOLN 50 ML BOTTLE TP ONE (09:34)
[2020-09-22] MEDS ORDERED: SODIUM HYPOCHLORITE, DAKIN'S FULL STRENGTH (0.5%) 473 ML TOPICAL SOLN TP ONE (10:01)
== END 2020-09-22 09:06 | disposition home or self-care (01) ==
LOC: WOUND 09:05
PROVIDERS: ATTEND Surgery
DX: I87.311 Chronic venous hypertension (idiopathic) with ulcer of right lower extremity (principal); L97.812 Non-pressure chronic ulcer of other part of right lower leg with fat layer exposed; R26.89 Other abnormalities of gait and mobility; B35.1 Tinea unguium; I10 Essential (primary) hypertension; J45.909 Unspecified asthma, uncomplicated; Z87.891 Personal history of nicotine dependence

== ENCOUNTER 2020-09-27 08:44 | Outpatient (CLI) | payer MEDICARE ==
--- NOTE | 2020-09-27 11:21 | Vascular Lab Report ---
DUPLEX DOPPLER LOWER EXTREMITY ARTERIAL, RIGHT INDICATION / CLINICAL INFORMATION: CHRONIC HTN WITH ULCER; PAIN. TECHNIQUE: Arterial duplex examination of the right lower extremity performed using B-mode, color sunil w and spectral Doppler assessment. FINDINGS: RIGHT: Common Femoral Artery: PSV 129 cm/sec. Triphasic waveform. Proximal SFA: PSV 131 cm/sec. Triphasic waveform. Mid SFA: PSV 118 cm/sec. Triphasic waveform. Distal SFA: PSV 110 cm/sec. Triphasic waveform. Popliteal artery: PSV 63 cm/sec. Triphasic waveform. Posterior tibial artery: PSV 78 cm/sec. Triphasic waveform. Dorsalis Pedis Artery: PSV 45 cm/sec. Triphasic waveform. IMPRESSION: 1. No hemodynamically significant right lower extremity peripheral artery disease. Doppler Waveform: - Triphasic is normal. - Biphasic is abnormal if clear transition from triphasic signal along vascular tree. - Monophasic is abnormal. Signer Name: Fausto Nolasco MD Signed: 09/27/2020 11:16 AM Workstation Name: [id number]
== END 2020-09-27 08:45 | disposition home or self-care (01) ==
LOC: VAS 08:44
PROVIDERS: ATTEND Surgery
DX: I87.311 Chronic venous hypertension (idiopathic) with ulcer of right lower extremity (principal)

== ENCOUNTER 2020-09-29 09:49 | Outpatient (CLI) | payer MEDICARE ==
[2020-09-29] MEDS ORDERED: LIDOCAINE (4%) 40 MG/ML TOPICAL SOLN 50 ML BOTTLE TP ONE (10:03)
== END 2020-09-29 09:50 | disposition home or self-care (01) ==
LOC: WOUND 09:49
PROVIDERS: ATTEND Surgery
DX: I87.311 Chronic venous hypertension (idiopathic) with ulcer of right lower extremity (principal); L97.812 Non-pressure chronic ulcer of other part of right lower leg with fat layer exposed; R26.89 Other abnormalities of gait and mobility; B35.1 Tinea unguium; I10 Essential (primary) hypertension; J45.909 Unspecified asthma, uncomplicated; Z87.891 Personal history of nicotine dependence

== ENCOUNTER 2020-10-06 09:49 | Outpatient (CLI) | payer MEDICARE ==
[2020-10-06] MEDS ORDERED: LIDOCAINE (4%) 40 MG/ML TOPICAL SOLN 50 ML BOTTLE TP ONE (10:20)
== END 2020-10-06 09:50 | disposition home or self-care (01) ==
LOC: WOUND 09:49
PROVIDERS: ATTEND Surgery
DX: I87.311 Chronic venous hypertension (idiopathic) with ulcer of right lower extremity (principal); L97.812 Non-pressure chronic ulcer of other part of right lower leg with fat layer exposed; R26.89 Other abnormalities of gait and mobility; B35.1 Tinea unguium; I10 Essential (primary) hypertension; J45.909 Unspecified asthma, uncomplicated; Z87.891 Personal history of nicotine dependence

== ENCOUNTER 2020-10-13 09:49 | Outpatient (CLI) | payer MEDICARE ==
[2020-10-13] MEDS ORDERED: LIDOCAINE (4%) 40 MG/ML TOPICAL SOLN 50 ML BOTTLE TP ONE (10:01)
== END 2020-10-13 09:50 | disposition home or self-care (01) ==
LOC: WOUND 09:49
PROVIDERS: ATTEND Surgery
DX: I87.311 Chronic venous hypertension (idiopathic) with ulcer of right lower extremity (principal); L97.812 Non-pressure chronic ulcer of other part of right lower leg with fat layer exposed; R26.89 Other abnormalities of gait and mobility; B35.1 Tinea unguium; I10 Essential (primary) hypertension; J45.909 Unspecified asthma, uncomplicated; Z87.891 Personal history of nicotine dependence

== ENCOUNTER 2020-10-20 08:03 | Outpatient (CLI) | payer MEDICARE ==
[2020-10-20] MEDS ORDERED: LIDOCAINE (4%) 40 MG/ML TOPICAL SOLN 50 ML BOTTLE TP ONE (08:08)
== END 2020-10-20 08:04 | disposition home or self-care (01) ==
LOC: WOUND 08:03
PROVIDERS: ATTEND Surgery
DX: I87.311 Chronic venous hypertension (idiopathic) with ulcer of right lower extremity (principal); L97.812 Non-pressure chronic ulcer of other part of right lower leg with fat layer exposed; R26.89 Other abnormalities of gait and mobility; B35.1 Tinea unguium; J45.909 Unspecified asthma, uncomplicated; Z87.891 Personal history of nicotine dependence

== ENCOUNTER 2020-10-27 09:36 | Outpatient (CLI) | payer MEDICARE | END 2020-10-27 09:37 | disposition home or self-care (01) | LOC: WOUND 09:36 | PROVIDERS: ATTEND Surgery | DX: I87.311 Chronic venous hypertension (idiopathic) with ulcer of right lower extremity (principal); L97.812 Non-pressure chronic ulcer of other part of right lower leg with fat layer exposed; R26.89 Other abnormalities of gait and mobility; B35.1 Tinea unguium; J45.909 Unspecified asthma, uncomplicated; Z87.891 Personal history of nicotine dependence ==

== ENCOUNTER 2020-11-03 09:36 | Outpatient (CLI) | payer MEDICARE ==
[2020-11-03] MEDS ORDERED: LIDOCAINE (4%) 40 MG/ML TOPICAL SOLN 50 ML BOTTLE TP ONE (10:15)
== END 2020-11-03 09:37 | disposition home or self-care (01) ==
LOC: WOUND 09:36
PROVIDERS: ATTEND Surgery
DX: I87.311 Chronic venous hypertension (idiopathic) with ulcer of right lower extremity (principal); L97.812 Non-pressure chronic ulcer of other part of right lower leg with fat layer exposed; R26.89 Other abnormalities of gait and mobility; B35.1 Tinea unguium; J45.909 Unspecified asthma, uncomplicated; Z87.891 Personal history of nicotine dependence

== ENCOUNTER 2020-11-10 10:03 | Outpatient (CLI) | payer MEDICARE ==
[2020-11-10] MEDS ORDERED: LIDOCAINE (4%) 40 MG/ML TOPICAL SOLN 50 ML BOTTLE TP ONE (10:06)
== END 2020-11-10 10:04 | disposition home or self-care (01) ==
LOC: WOUND 10:03
PROVIDERS: ATTEND Surgery
DX: I87.311 Chronic venous hypertension (idiopathic) with ulcer of right lower extremity (principal); L97.812 Non-pressure chronic ulcer of other part of right lower leg with fat layer exposed; R26.89 Other abnormalities of gait and mobility; B35.1 Tinea unguium; J45.909 Unspecified asthma, uncomplicated; Z87.891 Personal history of nicotine dependence

== ENCOUNTER 2020-12-01 11:15 | Outpatient (CLI) | payer MEDICARE ==
[2020-12-01] MEDS ORDERED: LIDOCAINE (4%) 40 MG/ML TOPICAL SOLN 50 ML BOTTLE TP ONE (11:42)
== END 2020-12-01 11:16 | disposition home or self-care (01) ==
LOC: WOUND 11:15
PROVIDERS: ATTEND Surgery
DX: I87.311 Chronic venous hypertension (idiopathic) with ulcer of right lower extremity (principal); L97.812 Non-pressure chronic ulcer of other part of right lower leg with fat layer exposed; R26.89 Other abnormalities of gait and mobility; B35.1 Tinea unguium; J45.909 Unspecified asthma, uncomplicated; Z87.891 Personal history of nicotine dependence

== ENCOUNTER 2020-12-22 09:14 | Outpatient (CLI) | payer MEDICARE ==
[2020-12-22] MEDS ORDERED: LIDOCAINE (4%) 40 MG/ML TOPICAL SOLN 50 ML BOTTLE TP ONE (09:44)
[2020-12-22] MEDS ORDERED: SODIUM HYPOCHLORITE, DAKIN'S FULL STRENGTH (0.5%) 473 ML TOPICAL SOLN TP ONE (10:49)
== END 2020-12-22 09:15 | disposition home or self-care (01) ==
LOC: WOUND 09:14
PROVIDERS: ATTEND Surgery
DX: I87.311 Chronic venous hypertension (idiopathic) with ulcer of right lower extremity (principal); L97.812 Non-pressure chronic ulcer of other part of right lower leg with fat layer exposed; R26.89 Other abnormalities of gait and mobility; B35.1 Tinea unguium; J45.909 Unspecified asthma, uncomplicated; Z87.891 Personal history of nicotine dependence

== ENCOUNTER 2020-12-29 09:21 | Outpatient (CLI) | payer MEDICARE ==
[2020-12-29] MEDS ORDERED: LIDOCAINE (4%) 40 MG/ML TOPICAL SOLN 50 ML BOTTLE TP ONE (09:25)
[2020-12-29] MEDS ORDERED: SODIUM HYPOCHLORITE, DAKIN'S FULL STRENGTH (0.5%) 473 ML TOPICAL SOLN TP ONE (09:33)
[2021-02-02] MEDS ORDERED: LIDOCAINE (4%) 40 MG/ML TOPICAL SOLN 50 ML BOTTLE TP ONE (09:36)
[2021-02-06] MEDS ORDERED: DEXTROSE 50% IN WATER (25GM) 50 ML SYRINGE IV ONE (18:17)
== END 2020-12-29 09:22 | disposition home or self-care (01) ==
LOC: WOUND 09:21
PROVIDERS: ATTEND Surgery
DX: I87.311 Chronic venous hypertension (idiopathic) with ulcer of right lower extremity (principal); L97.812 Non-pressure chronic ulcer of other part of right lower leg with fat layer exposed; R26.89 Other abnormalities of gait and mobility; B35.1 Tinea unguium; J45.909 Unspecified asthma, uncomplicated; Z87.891 Personal history of nicotine dependence

== ENCOUNTER 2021-01-05 08:25 | Outpatient (CLI) | payer MEDICARE ==
[2021-01-05] MEDS ORDERED: LIDOCAINE (4%) 40 MG/ML TOPICAL SOLN 50 ML BOTTLE TP SCH (09:00)
== END 2021-01-05 08:26 | disposition home or self-care (01) ==
LOC: WOUND 08:25
PROVIDERS: ATTEND Surgery
DX: I87.311 Chronic venous hypertension (idiopathic) with ulcer of right lower extremity (principal); L97.812 Non-pressure chronic ulcer of other part of right lower leg with fat layer exposed; R26.89 Other abnormalities of gait and mobility; B35.1 Tinea unguium; J45.909 Unspecified asthma, uncomplicated; Z87.891 Personal history of nicotine dependence

== ENCOUNTER 2021-01-19 08:04 | Outpatient (CLI) | payer MEDICARE ==
[2021-01-19] MEDS ORDERED: LIDOCAINE (4%) 40 MG/ML TOPICAL SOLN 50 ML BOTTLE TP ONE (08:12)
[2021-01-19] MEDS ORDERED: SODIUM HYPOCHLORITE, DAKIN'S FULL STRENGTH (0.5%) 473 ML TOPICAL SOLN TP ONE (08:55)
== END 2021-01-19 08:05 | disposition home or self-care (01) ==
LOC: WOUND 08:04
PROVIDERS: ATTEND Surgery
DX: I87.311 Chronic venous hypertension (idiopathic) with ulcer of right lower extremity (principal); L97.812 Non-pressure chronic ulcer of other part of right lower leg with fat layer exposed; R26.89 Other abnormalities of gait and mobility; B35.1 Tinea unguium; J45.909 Unspecified asthma, uncomplicated; Z87.891 Personal history of nicotine dependence

== ENCOUNTER 2021-01-26 08:29 | Outpatient (CLI) | payer MEDICARE ==
[2021-01-26] MEDS ORDERED: LIDOCAINE (4%) 40 MG/ML TOPICAL SOLN 50 ML BOTTLE TP SCH (09:00)
== END 2021-01-26 08:30 | disposition home or self-care (01) ==
LOC: WOUND 08:29
PROVIDERS: ATTEND Surgery
DX: I87.311 Chronic venous hypertension (idiopathic) with ulcer of right lower extremity (principal); L97.812 Non-pressure chronic ulcer of other part of right lower leg with fat layer exposed; L97.212 Non-pressure chronic ulcer of right calf with fat layer exposed; R26.89 Other abnormalities of gait and mobility; B35.1 Tinea unguium; J45.909 Unspecified asthma, uncomplicated; Z87.891 Personal history of nicotine dependence

== ENCOUNTER 2021-02-02 08:32 | Outpatient (CLI) | payer MEDICARE ==
[2021-02-02] MEDS ORDERED: LIDOCAINE (4%) 40 MG/ML TOPICAL SOLN 50 ML BOTTLE TP ONE (10:21)
== END 2021-02-02 08:33 | disposition home or self-care (01) ==
LOC: WOUND 08:32
PROVIDERS: ATTEND Surgery
DX: I87.311 Chronic venous hypertension (idiopathic) with ulcer of right lower extremity (principal); L97.812 Non-pressure chronic ulcer of other part of right lower leg with fat layer exposed; L97.212 Non-pressure chronic ulcer of right calf with fat layer exposed; R26.89 Other abnormalities of gait and mobility; B35.1 Tinea unguium; J45.909 Unspecified asthma, uncomplicated; Z87.891 Personal history of nicotine dependence

== ENCOUNTER 2021-02-09 09:05 | Outpatient (CLI) | payer MEDICARE ==
[2021-02-09] MEDS ORDERED: LIDOCAINE (4%) 40 MG/ML TOPICAL SOLN 50 ML BOTTLE TP ONE (09:20)
== END 2021-02-09 09:06 | disposition home or self-care (01) ==
LOC: WOUND 09:05
PROVIDERS: ATTEND Surgery
DX: I87.311 Chronic venous hypertension (idiopathic) with ulcer of right lower extremity (principal); L97.812 Non-pressure chronic ulcer of other part of right lower leg with fat layer exposed; L97.212 Non-pressure chronic ulcer of right calf with fat layer exposed; R26.89 Other abnormalities of gait and mobility; B35.1 Tinea unguium; J45.909 Unspecified asthma, uncomplicated; Z87.891 Personal history of nicotine dependence

== ENCOUNTER 2021-02-16 08:36 | Outpatient (CLI) | payer MEDICARE ==
[2021-02-16] MEDS ORDERED: LIDOCAINE (4%) 40 MG/ML TOPICAL SOLN 50 ML BOTTLE TP SCH (09:00)
[2021-02-16] MEDS ORDERED: SODIUM HYPOCHLORITE, DAKIN'S FULL STRENGTH (0.5%) 473 ML TOPICAL SOLN TP SCH (09:30)
== END 2021-02-16 08:37 | disposition home or self-care (01) ==
LOC: WOUND 08:36
PROVIDERS: ATTEND Surgery
DX: I87.311 Chronic venous hypertension (idiopathic) with ulcer of right lower extremity (principal); L97.812 Non-pressure chronic ulcer of other part of right lower leg with fat layer exposed; L97.212 Non-pressure chronic ulcer of right calf with fat layer exposed; R26.89 Other abnormalities of gait and mobility; B35.1 Tinea unguium; J45.909 Unspecified asthma, uncomplicated; Z87.891 Personal history of nicotine dependence

== ENCOUNTER 2021-02-23 08:37 | Outpatient (CLI) | payer MEDICARE ==
[2021-02-23] MEDS ORDERED: LIDOCAINE (4%) 40 MG/ML TOPICAL SOLN 50 ML BOTTLE TP ONE (08:56)
== END 2021-02-23 08:38 | disposition home or self-care (01) ==
LOC: WOUND 08:37
PROVIDERS: ATTEND Surgery
DX: I87.311 Chronic venous hypertension (idiopathic) with ulcer of right lower extremity (principal); L97.812 Non-pressure chronic ulcer of other part of right lower leg with fat layer exposed; L97.212 Non-pressure chronic ulcer of right calf with fat layer exposed; R26.89 Other abnormalities of gait and mobility; B35.1 Tinea unguium; J45.909 Unspecified asthma, uncomplicated; Z87.891 Personal history of nicotine dependence

== ENCOUNTER 2021-03-02 08:57 | Outpatient (CLI) | payer MEDICARE ==
[2021-03-02] MEDS ORDERED: LIDOCAINE (4%) 40 MG/ML TOPICAL SOLN 50 ML BOTTLE TP ONE (09:06)
== END 2021-03-02 08:58 | disposition home or self-care (01) ==
LOC: WOUND 08:57
PROVIDERS: ATTEND Surgery
DX: I87.311 Chronic venous hypertension (idiopathic) with ulcer of right lower extremity (principal); L97.812 Non-pressure chronic ulcer of other part of right lower leg with fat layer exposed; L97.212 Non-pressure chronic ulcer of right calf with fat layer exposed; R26.89 Other abnormalities of gait and mobility; B35.1 Tinea unguium; J45.909 Unspecified asthma, uncomplicated; Z87.891 Personal history of nicotine dependence

== ENCOUNTER 2021-03-09 08:59 | Outpatient (CLI) | payer MEDICARE ==
[2021-03-09] MEDS ORDERED: LIDOCAINE (4%) 40 MG/ML TOPICAL SOLN 50 ML BOTTLE TP ONE (09:04)
== END 2021-03-09 09:00 | disposition home or self-care (01) ==
LOC: WOUND 08:59
PROVIDERS: ATTEND Surgery
DX: I87.311 Chronic venous hypertension (idiopathic) with ulcer of right lower extremity (principal); L97.812 Non-pressure chronic ulcer of other part of right lower leg with fat layer exposed; L97.212 Non-pressure chronic ulcer of right calf with fat layer exposed; R26.89 Other abnormalities of gait and mobility; B35.1 Tinea unguium; J45.909 Unspecified asthma, uncomplicated; Z87.891 Personal history of nicotine dependence

== ENCOUNTER 2021-03-16 09:03 | Outpatient (CLI) | payer MEDICARE ==
[2021-03-16] MEDS ORDERED: LIDOCAINE (4%) 40 MG/ML TOPICAL SOLN 50 ML BOTTLE TP ONE (09:09)
== END 2021-03-16 09:04 | disposition home or self-care (01) ==
LOC: WOUND 09:03
PROVIDERS: ATTEND Surgery
DX: I87.311 Chronic venous hypertension (idiopathic) with ulcer of right lower extremity (principal); L97.812 Non-pressure chronic ulcer of other part of right lower leg with fat layer exposed; L97.212 Non-pressure chronic ulcer of right calf with fat layer exposed; R26.89 Other abnormalities of gait and mobility; B35.1 Tinea unguium; J45.909 Unspecified asthma, uncomplicated; Z87.891 Personal history of nicotine dependence

== ENCOUNTER 2021-03-23 08:33 | Outpatient (CLI) | payer MEDICARE ==
[2021-03-23] MEDS ORDERED: LIDOCAINE (4%) 40 MG/ML TOPICAL SOLN 50 ML BOTTLE TP ONE (08:42)
[2021-03-23] MEDS ORDERED: SODIUM HYPOCHLORITE, DAKIN'S FULL STRENGTH (0.5%) 473 ML TOPICAL SOLN TP ONE (09:25)
== END 2021-03-23 08:34 | disposition home or self-care (01) ==
LOC: WOUND 08:33
PROVIDERS: ATTEND Surgery
DX: I87.311 Chronic venous hypertension (idiopathic) with ulcer of right lower extremity (principal); L97.812 Non-pressure chronic ulcer of other part of right lower leg with fat layer exposed; L97.212 Non-pressure chronic ulcer of right calf with fat layer exposed; R26.89 Other abnormalities of gait and mobility; B35.1 Tinea unguium; J45.909 Unspecified asthma, uncomplicated; Z87.891 Personal history of nicotine dependence

== ENCOUNTER 2021-03-30 08:39 | Outpatient (CLI) | payer MEDICARE ==
[2021-03-30] MEDS ORDERED: LIDOCAINE (4%) 40 MG/ML TOPICAL SOLN 50 ML BOTTLE TP SCH (09:00)
== END 2021-03-30 08:40 | disposition home or self-care (01) ==
LOC: WOUND 08:39
PROVIDERS: ATTEND Surgery
DX: I87.311 Chronic venous hypertension (idiopathic) with ulcer of right lower extremity (principal); L97.812 Non-pressure chronic ulcer of other part of right lower leg with fat layer exposed; L97.212 Non-pressure chronic ulcer of right calf with fat layer exposed; R26.89 Other abnormalities of gait and mobility; B35.1 Tinea unguium; J45.909 Unspecified asthma, uncomplicated; Z87.891 Personal history of nicotine dependence

== ENCOUNTER 2021-04-06 08:48 | Outpatient (CLI) | payer MEDICARE ==
[2021-04-06] MEDS ORDERED: LIDOCAINE (4%) 40 MG/ML TOPICAL SOLN 50 ML BOTTLE TP ONE (10:00)
== END 2021-04-06 08:49 | disposition home or self-care (01) ==
LOC: WOUND 08:48
PROVIDERS: ATTEND Surgery
DX: I87.311 Chronic venous hypertension (idiopathic) with ulcer of right lower extremity (principal); L97.812 Non-pressure chronic ulcer of other part of right lower leg with fat layer exposed; R26.89 Other abnormalities of gait and mobility; B35.1 Tinea unguium; J45.909 Unspecified asthma, uncomplicated; Z87.891 Personal history of nicotine dependence

== ENCOUNTER 2021-04-13 08:51 | Outpatient (CLI) | payer MEDICARE ==
[2021-04-13] MEDS ORDERED: LIDOCAINE (4%) 40 MG/ML TOPICAL SOLN 50 ML BOTTLE TP SCH (09:00)
[2021-04-13] MEDS ORDERED: SODIUM HYPOCHLORITE, DAKIN'S FULL STRENGTH (0.5%) 473 ML TOPICAL SOLN TP SCH (10:00)
== END 2021-04-13 08:52 | disposition home or self-care (01) ==
LOC: WOUND 08:51
PROVIDERS: ATTEND Surgery
DX: I87.311 Chronic venous hypertension (idiopathic) with ulcer of right lower extremity (principal); L97.812 Non-pressure chronic ulcer of other part of right lower leg with fat layer exposed; R26.89 Other abnormalities of gait and mobility; B35.1 Tinea unguium; J45.909 Unspecified asthma, uncomplicated; Z87.891 Personal history of nicotine dependence

== ENCOUNTER 2021-04-20 08:01 | Outpatient (CLI) | payer MEDICARE ==
[2021-04-20] MEDS ORDERED: LIDOCAINE (4%) 40 MG/ML TOPICAL SOLN 50 ML BOTTLE TP SCH (09:00)
== END 2021-04-20 08:02 | disposition home or self-care (01) ==
LOC: WOUND 08:01
PROVIDERS: ATTEND Surgery
DX: I87.311 Chronic venous hypertension (idiopathic) with ulcer of right lower extremity (principal); L97.812 Non-pressure chronic ulcer of other part of right lower leg with fat layer exposed; R26.89 Other abnormalities of gait and mobility; B35.1 Tinea unguium; J45.909 Unspecified asthma, uncomplicated; Z87.891 Personal history of nicotine dependence
CPT/HCPCS: 11042; G0463

== ENCOUNTER 2021-04-27 08:37 | Outpatient (CLI) | payer MEDICARE ==
[2021-04-27] MEDS ORDERED: LIDOCAINE (4%) 40 MG/ML TOPICAL SOLN 50 ML BOTTLE TP ONE (09:56)
== END 2021-04-27 08:38 | disposition home or self-care (01) ==
LOC: WOUND 08:37
PROVIDERS: ATTEND Surgery
DX: I87.311 Chronic venous hypertension (idiopathic) with ulcer of right lower extremity (principal); L97.812 Non-pressure chronic ulcer of other part of right lower leg with fat layer exposed; R26.89 Other abnormalities of gait and mobility; B35.1 Tinea unguium; J45.909 Unspecified asthma, uncomplicated; Z87.891 Personal history of nicotine dependence

== ENCOUNTER 2021-05-04 08:55 | Outpatient (CLI) | payer MEDICARE ==
[2021-05-04] MEDS ORDERED: LIDOCAINE (4%) 40 MG/ML TOPICAL SOLN 50 ML BOTTLE TP ONE (09:14)
== END 2021-05-04 08:56 | disposition home or self-care (01) ==
LOC: WOUND 08:55
PROVIDERS: ATTEND Surgery
DX: I87.311 Chronic venous hypertension (idiopathic) with ulcer of right lower extremity (principal); L97.812 Non-pressure chronic ulcer of other part of right lower leg with fat layer exposed; R26.89 Other abnormalities of gait and mobility; B35.1 Tinea unguium; J45.909 Unspecified asthma, uncomplicated; Z87.891 Personal history of nicotine dependence

== ENCOUNTER 2021-05-11 08:49 | Outpatient (CLI) | payer MEDICARE ==
[2021-05-11] MEDS ORDERED: LIDOCAINE (4%) 40 MG/ML TOPICAL SOLN 50 ML BOTTLE TP ONE (08:54)
[2021-05-11] MEDS ORDERED: SODIUM HYPOCHLORITE, DAKIN'S FULL STRENGTH (0.5%) 473 ML TOPICAL SOLN TP ONE (08:58)
== END 2021-05-11 08:50 | disposition home or self-care (01) ==
LOC: WOUND 08:49
PROVIDERS: ATTEND Surgery
DX: I87.311 Chronic venous hypertension (idiopathic) with ulcer of right lower extremity (principal); L97.812 Non-pressure chronic ulcer of other part of right lower leg with fat layer exposed; I87.302 Chronic venous hypertension (idiopathic) without complications of left lower extremity; R26.89 Other abnormalities of gait and mobility; B35.1 Tinea unguium; J45.909 Unspecified asthma, uncomplicated; Z87.891 Personal history of nicotine dependence

== ENCOUNTER 2021-05-25 08:33 | Outpatient (CLI) | payer MEDICARE ==
[2021-05-25] MEDS ORDERED: LIDOCAINE (4%) 40 MG/ML TOPICAL SOLN 50 ML BOTTLE TP ONE (08:34)
== END 2021-05-25 08:34 | disposition home or self-care (01) ==
LOC: WOUND 08:33
PROVIDERS: ATTEND Surgery
DX: I87.311 Chronic venous hypertension (idiopathic) with ulcer of right lower extremity (principal); L97.812 Non-pressure chronic ulcer of other part of right lower leg with fat layer exposed; I87.302 Chronic venous hypertension (idiopathic) without complications of left lower extremity; R26.89 Other abnormalities of gait and mobility; B35.1 Tinea unguium; J45.909 Unspecified asthma, uncomplicated; Z87.891 Personal history of nicotine dependence

== ENCOUNTER 2021-06-01 08:37 | Outpatient (CLI) | payer MEDICARE ==
[2021-06-01] MEDS ORDERED: LIDOCAINE (4%) 40 MG/ML TOPICAL SOLN 50 ML BOTTLE TP ONE (08:55)
== END 2021-06-01 08:38 | disposition home or self-care (01) ==
LOC: WOUND 08:37
PROVIDERS: ATTEND Surgery
DX: I87.311 Chronic venous hypertension (idiopathic) with ulcer of right lower extremity (principal); L97.812 Non-pressure chronic ulcer of other part of right lower leg with fat layer exposed; I87.302 Chronic venous hypertension (idiopathic) without complications of left lower extremity; R26.89 Other abnormalities of gait and mobility; B35.1 Tinea unguium; J45.909 Unspecified asthma, uncomplicated; Z87.891 Personal history of nicotine dependence

== ENCOUNTER 2021-06-08 08:37 | Outpatient (CLI) | payer MEDICARE ==
[2021-06-08] MEDS ORDERED: LIDOCAINE (4%) 40 MG/ML TOPICAL SOLN 50 ML BOTTLE TP ONE (08:45)
[2021-06-08] MEDS ORDERED: SODIUM HYPOCHLORITE, DAKIN'S FULL STRENGTH (0.5%) 473 ML TOPICAL SOLN TP ONE (08:57)
== END 2021-06-08 08:38 | disposition home or self-care (01) ==
LOC: WOUND 08:37
PROVIDERS: ATTEND Surgery
DX: I87.311 Chronic venous hypertension (idiopathic) with ulcer of right lower extremity (principal); L97.812 Non-pressure chronic ulcer of other part of right lower leg with fat layer exposed; I87.302 Chronic venous hypertension (idiopathic) without complications of left lower extremity; R26.89 Other abnormalities of gait and mobility; B35.1 Tinea unguium; J45.909 Unspecified asthma, uncomplicated; Z87.891 Personal history of nicotine dependence

== ENCOUNTER 2021-06-29 08:17 | Outpatient (CLI) | payer MEDICARE ==
[2021-06-29] MEDS ORDERED: LIDOCAINE (4%) 40 MG/ML TOPICAL SOLN 50 ML BOTTLE TP ONE (08:24)
[2021-06-29] MEDS ORDERED: SODIUM HYPOCHLORITE, DAKIN'S FULL STRENGTH (0.5%) 473 ML TOPICAL SOLN TP ONE (15:10)
== END 2021-06-29 08:18 | disposition home or self-care (01) ==
LOC: WOUND 08:17
PROVIDERS: ATTEND Surgery
DX: I87.311 Chronic venous hypertension (idiopathic) with ulcer of right lower extremity (principal); L97.812 Non-pressure chronic ulcer of other part of right lower leg with fat layer exposed; I87.302 Chronic venous hypertension (idiopathic) without complications of left lower extremity; R26.89 Other abnormalities of gait and mobility; B35.1 Tinea unguium; J45.909 Unspecified asthma, uncomplicated; Z87.891 Personal history of nicotine dependence

== ENCOUNTER 2021-07-07 08:45 | Outpatient (CLI) | payer MEDICARE ==
[2021-07-07] MEDS ORDERED: LIDOCAINE (4%) 40 MG/ML TOPICAL SOLN 50 ML BOTTLE TP ONE ×2 (08:48→10:00)
[2021-07-07] MEDS ORDERED: SODIUM HYPOCHLORITE, DAKIN'S FULL STRENGTH (0.5%) 473 ML TOPICAL SOLN TP ONE (10:00)
== END 2021-07-07 08:46 | disposition home or self-care (01) ==
LOC: WOUND 08:45
PROVIDERS: ATTEND Surgery
DX: I87.311 Chronic venous hypertension (idiopathic) with ulcer of right lower extremity (principal); L97.812 Non-pressure chronic ulcer of other part of right lower leg with fat layer exposed; J45.909 Unspecified asthma, uncomplicated; I10 Essential (primary) hypertension; B35.1 Tinea unguium; I87.8 Other specified disorders of veins; Z87.891 Personal history of nicotine dependence; Z79.899 Other long term (current) drug therapy

== ENCOUNTER 2021-07-13 08:40 | Outpatient (CLI) | payer MEDICARE ==
[2021-07-13] MEDS ORDERED: LIDOCAINE (4%) 40 MG/ML TOPICAL SOLN 50 ML BOTTLE TP SCH (09:00)
== END 2021-07-13 08:41 | disposition home or self-care (01) ==
LOC: WOUND 08:40
PROVIDERS: ATTEND Surgery
DX: I87.311 Chronic venous hypertension (idiopathic) with ulcer of right lower extremity (principal); L97.812 Non-pressure chronic ulcer of other part of right lower leg with fat layer exposed; J45.909 Unspecified asthma, uncomplicated; I10 Essential (primary) hypertension; B35.1 Tinea unguium; I87.8 Other specified disorders of veins; Z87.891 Personal history of nicotine dependence; Z79.899 Other long term (current) drug therapy

== ENCOUNTER 2021-07-20 08:53 | Outpatient (CLI) | payer MEDICARE ==
[2021-07-20] MEDS ORDERED: LIDOCAINE (4%) 40 MG/ML TOPICAL SOLN 50 ML BOTTLE TP ONE (09:05)
[2021-07-20] MEDS ORDERED: SODIUM HYPOCHLORITE, DAKIN'S FULL STRENGTH (0.5%) 473 ML TOPICAL SOLN TP ONE (10:49)
== END 2021-07-20 08:54 | disposition home or self-care (01) ==
LOC: WOUND 08:53
PROVIDERS: ATTEND Surgery
DX: I87.311 Chronic venous hypertension (idiopathic) with ulcer of right lower extremity (principal); L97.812 Non-pressure chronic ulcer of other part of right lower leg with fat layer exposed; I87.8 Other specified disorders of veins; J45.909 Unspecified asthma, uncomplicated; Z87.891 Personal history of nicotine dependence; Z79.899 Other long term (current) drug therapy

== ENCOUNTER 2021-07-27 09:33 | Outpatient (CLI) | payer MEDICARE ==
[2021-07-27] MEDS ORDERED: LIDOCAINE (4%) 40 MG/ML TOPICAL SOLN 50 ML BOTTLE TP ONE (09:37)
== END 2021-07-27 09:34 | disposition home or self-care (01) ==
LOC: WOUND 09:33
PROVIDERS: ATTEND Surgery
DX: I87.311 Chronic venous hypertension (idiopathic) with ulcer of right lower extremity (principal); L97.812 Non-pressure chronic ulcer of other part of right lower leg with fat layer exposed; I87.8 Other specified disorders of veins; J45.909 Unspecified asthma, uncomplicated; Z87.891 Personal history of nicotine dependence; Z79.899 Other long term (current) drug therapy

== ENCOUNTER 2021-08-03 09:21 | Outpatient (CLI) | payer MEDICARE ==
[2021-08-03] MEDS ORDERED: LIDOCAINE (4%) 40 MG/ML TOPICAL SOLN 50 ML BOTTLE TP ONE (09:31)
== END 2021-08-03 09:22 | disposition home or self-care (01) ==
LOC: WOUND 09:21
PROVIDERS: ATTEND Surgery
DX: I87.311 Chronic venous hypertension (idiopathic) with ulcer of right lower extremity (principal); L97.812 Non-pressure chronic ulcer of other part of right lower leg with fat layer exposed; I87.8 Other specified disorders of veins; J45.909 Unspecified asthma, uncomplicated; Z87.891 Personal history of nicotine dependence; Z79.899 Other long term (current) drug therapy

== ENCOUNTER 2021-08-10 09:13 | Outpatient (CLI) | payer MEDICARE ==
[2021-08-10] MEDS ORDERED: LIDOCAINE (4%) 40 MG/ML TOPICAL SOLN 50 ML BOTTLE TP ONE (11:06)
== END 2021-08-10 09:14 | disposition home or self-care (01) ==
LOC: WOUND 09:13
PROVIDERS: ATTEND Surgery
DX: I87.311 Chronic venous hypertension (idiopathic) with ulcer of right lower extremity (principal); L97.812 Non-pressure chronic ulcer of other part of right lower leg with fat layer exposed; I87.8 Other specified disorders of veins; J45.909 Unspecified asthma, uncomplicated; Z87.891 Personal history of nicotine dependence; Z79.899 Other long term (current) drug therapy

== ENCOUNTER 2021-08-17 08:36 | Outpatient (CLI) | payer MEDICARE ==
[2021-08-17] MEDS ORDERED: LIDOCAINE (4%) 40 MG/ML TOPICAL SOLN 50 ML BOTTLE TP ONE (08:39)
== END 2021-08-17 08:37 | disposition home or self-care (01) ==
LOC: WOUND 08:36
PROVIDERS: ATTEND Surgery
DX: I87.311 Chronic venous hypertension (idiopathic) with ulcer of right lower extremity (principal); L97.812 Non-pressure chronic ulcer of other part of right lower leg with fat layer exposed; J45.909 Unspecified asthma, uncomplicated; Z87.891 Personal history of nicotine dependence; Z98.890 Other specified postprocedural states; Z79.899 Other long term (current) drug therapy

== ENCOUNTER 2021-08-24 10:03 | Outpatient (CLI) | payer MEDICARE ==
[2021-08-24] MEDS ORDERED: LIDOCAINE (4%) 40 MG/ML TOPICAL SOLN 50 ML BOTTLE TP SCH (10:30)
== END 2021-08-24 10:04 | disposition home or self-care (01) ==
LOC: WOUND 10:03
PROVIDERS: ATTEND Surgery
DX: I87.311 Chronic venous hypertension (idiopathic) with ulcer of right lower extremity (principal); L97.812 Non-pressure chronic ulcer of other part of right lower leg with fat layer exposed; J45.909 Unspecified asthma, uncomplicated; Z98.890 Other specified postprocedural states; Z79.899 Other long term (current) drug therapy; Z87.891 Personal history of nicotine dependence

== ENCOUNTER 2021-08-31 09:24 | Outpatient (CLI) | payer MEDICARE ==
[2021-08-31] MEDS ORDERED: LIDOCAINE (4%) 40 MG/ML TOPICAL SOLN 50 ML BOTTLE TP ONE (10:05)
== END 2021-08-31 09:25 | disposition home or self-care (01) ==
LOC: WOUND 09:24
PROVIDERS: ATTEND Surgery
DX: I87.311 Chronic venous hypertension (idiopathic) with ulcer of right lower extremity (principal); L97.812 Non-pressure chronic ulcer of other part of right lower leg with fat layer exposed; J45.909 Unspecified asthma, uncomplicated; Z87.891 Personal history of nicotine dependence; Z98.890 Other specified postprocedural states; Z79.899 Other long term (current) drug therapy

== ENCOUNTER 2021-09-07 09:46 | Outpatient (CLI) | payer MEDICARE ==
[2021-09-07] MEDS ORDERED: LIDOCAINE (4%) 40 MG/ML TOPICAL SOLN 50 ML BOTTLE TP SCH (10:30)
== END 2021-09-07 09:47 | disposition home or self-care (01) ==
LOC: WOUND 09:46
PROVIDERS: ATTEND Surgery
DX: I87.311 Chronic venous hypertension (idiopathic) with ulcer of right lower extremity (principal); L97.812 Non-pressure chronic ulcer of other part of right lower leg with fat layer exposed; J45.909 Unspecified asthma, uncomplicated; Z87.891 Personal history of nicotine dependence; Z98.890 Other specified postprocedural states; Z79.899 Other long term (current) drug therapy

== ENCOUNTER 2021-09-21 09:13 | Outpatient (CLI) | payer MEDICARE ==
[2021-09-21] MEDS ORDERED: LIDOCAINE (4%) 40 MG/ML TOPICAL SOLN 50 ML BOTTLE TP ONE (09:14)
== END 2021-09-21 09:14 | disposition home or self-care (01) ==
LOC: WOUND 09:13
PROVIDERS: ATTEND Surgery
DX: I87.311 Chronic venous hypertension (idiopathic) with ulcer of right lower extremity (principal); L97.812 Non-pressure chronic ulcer of other part of right lower leg with fat layer exposed; J45.909 Unspecified asthma, uncomplicated; Z87.891 Personal history of nicotine dependence; Z98.890 Other specified postprocedural states; Z79.899 Other long term (current) drug therapy

== ENCOUNTER 2021-10-05 09:14 | Outpatient (CLI) | payer MEDICARE ==
[2021-10-05] MEDS ORDERED: LIDOCAINE (4%) 40 MG/ML TOPICAL SOLN 50 ML BOTTLE TP ONE (09:21)
== END 2021-10-05 09:15 | disposition home or self-care (01) ==
LOC: WOUND 09:14
PROVIDERS: ATTEND Surgery
DX: I87.311 Chronic venous hypertension (idiopathic) with ulcer of right lower extremity (principal); L97.812 Non-pressure chronic ulcer of other part of right lower leg with fat layer exposed; J45.909 Unspecified asthma, uncomplicated; Z87.891 Personal history of nicotine dependence; Z98.890 Other specified postprocedural states; Z79.899 Other long term (current) drug therapy

== ENCOUNTER 2021-10-19 08:46 | Outpatient (CLI) | payer MEDICARE ==
[2021-10-19] MEDS ORDERED: LIDOCAINE (4%) 40 MG/ML TOPICAL SOLN 50 ML BOTTLE TP ONE (09:08)
== END 2021-10-19 08:47 | disposition home or self-care (01) ==
LOC: WOUND 08:46
PROVIDERS: ATTEND Surgery
DX: I87.311 Chronic venous hypertension (idiopathic) with ulcer of right lower extremity (principal); L97.812 Non-pressure chronic ulcer of other part of right lower leg with fat layer exposed; J45.909 Unspecified asthma, uncomplicated; Z87.891 Personal history of nicotine dependence; Z98.890 Other specified postprocedural states; Z79.899 Other long term (current) drug therapy
CPT/HCPCS: 29581

== ENCOUNTER 2021-10-26 09:05 | Outpatient (CLI) | payer MEDICARE ==
[2021-10-26] MEDS ORDERED: LIDOCAINE (4%) 40 MG/ML TOPICAL SOLN 50 ML BOTTLE TP ONE (09:11)
[2021-10-26] MEDS ORDERED: SODIUM HYPOCHLORITE, DAKIN'S FULL STRENGTH (0.5%) 473 ML TOPICAL SOLN TP ONE (10:20)
== END 2021-10-26 09:06 | disposition home or self-care (01) ==
LOC: WOUND 09:05
PROVIDERS: ATTEND Surgery
DX: I87.311 Chronic venous hypertension (idiopathic) with ulcer of right lower extremity (principal); L97.812 Non-pressure chronic ulcer of other part of right lower leg with fat layer exposed; J45.909 Unspecified asthma, uncomplicated; Z87.891 Personal history of nicotine dependence; Z98.890 Other specified postprocedural states; Z79.899 Other long term (current) drug therapy

== ENCOUNTER 2021-11-02 09:51 | Outpatient (CLI) | payer MEDICARE ==
[2021-11-02] MEDS ORDERED: LIDOCAINE (4%) 40 MG/ML TOPICAL SOLN 50 ML BOTTLE TP SCH (10:30)
[2021-11-02] MEDS ORDERED: SODIUM HYPOCHLORITE, DAKIN'S FULL STRENGTH (0.5%) 473 ML TOPICAL SOLN TP ONE (11:43)
== END 2021-11-02 09:52 | disposition home or self-care (01) ==
LOC: WOUND 09:51
PROVIDERS: ATTEND Surgery
DX: I87.311 Chronic venous hypertension (idiopathic) with ulcer of right lower extremity (principal); L97.812 Non-pressure chronic ulcer of other part of right lower leg with fat layer exposed; J45.909 Unspecified asthma, uncomplicated; Z87.891 Personal history of nicotine dependence; Z98.890 Other specified postprocedural states; Z79.899 Other long term (current) drug therapy

== ENCOUNTER 2021-11-09 09:36 | Outpatient (CLI) | payer MEDICARE ==
[2021-11-09] MEDS ORDERED: LIDOCAINE (4%) 40 MG/ML TOPICAL SOLN 50 ML BOTTLE TP ONE (10:27)
== END 2021-11-09 09:37 | disposition home or self-care (01) ==
LOC: WOUND 09:36
PROVIDERS: ATTEND Surgery
DX: I87.311 Chronic venous hypertension (idiopathic) with ulcer of right lower extremity (principal); L97.812 Non-pressure chronic ulcer of other part of right lower leg with fat layer exposed; J45.909 Unspecified asthma, uncomplicated; Z87.891 Personal history of nicotine dependence; Z98.890 Other specified postprocedural states; Z79.899 Other long term (current) drug therapy

== ENCOUNTER 2021-11-23 09:24 | Outpatient (CLI) | payer MEDICARE ==
[2021-11-23] MEDS ORDERED: LIDOCAINE (4%) 40 MG/ML TOPICAL SOLN 50 ML BOTTLE TP SCH (09:30)
== END 2021-11-23 09:25 | disposition home or self-care (01) ==
LOC: WOUND 09:24
PROVIDERS: ATTEND Surgery
DX: I87.311 Chronic venous hypertension (idiopathic) with ulcer of right lower extremity (principal); L97.812 Non-pressure chronic ulcer of other part of right lower leg with fat layer exposed; J45.909 Unspecified asthma, uncomplicated; Z87.891 Personal history of nicotine dependence; Z98.890 Other specified postprocedural states; Z79.899 Other long term (current) drug therapy

== ENCOUNTER 2021-11-30 09:54 | Outpatient (CLI) | payer MEDICARE ==
[2021-11-30] MEDS ORDERED: LIDOCAINE (4%) 40 MG/ML TOPICAL SOLN 50 ML BOTTLE TP ONE (10:58)
== END 2021-11-30 09:55 | disposition home or self-care (01) ==
LOC: WOUND 09:54
PROVIDERS: ATTEND Surgery
DX: I87.311 Chronic venous hypertension (idiopathic) with ulcer of right lower extremity (principal); L97.812 Non-pressure chronic ulcer of other part of right lower leg with fat layer exposed; I87.8 Other specified disorders of veins; J45.909 Unspecified asthma, uncomplicated; Z87.891 Personal history of nicotine dependence; Z98.890 Other specified postprocedural states; Z79.899 Other long term (current) drug therapy

== ENCOUNTER 2021-12-07 09:48 | Outpatient (CLI) | payer MEDICARE ==
[2021-12-07] MEDS ORDERED: LIDOCAINE (4%) 40 MG/ML TOPICAL SOLN 50 ML BOTTLE TP ONE (09:53)
== END 2021-12-07 09:49 | disposition home or self-care (01) ==
LOC: WOUND 09:48
PROVIDERS: ATTEND Surgery
DX: I87.311 Chronic venous hypertension (idiopathic) with ulcer of right lower extremity (principal); L97.812 Non-pressure chronic ulcer of other part of right lower leg with fat layer exposed; J45.909 Unspecified asthma, uncomplicated; Z87.891 Personal history of nicotine dependence; Z98.890 Other specified postprocedural states; Z79.899 Other long term (current) drug therapy

== ENCOUNTER 2021-12-14 08:36 | Outpatient (CLI) | payer MEDICARE ==
[2021-12-14] MEDS ORDERED: LIDOCAINE (4%) 40 MG/ML TOPICAL SOLN 50 ML BOTTLE TP ONE (09:00)
== END 2021-12-14 08:37 | disposition home or self-care (01) ==
LOC: WOUND 08:36
PROVIDERS: ATTEND Surgery
DX: I87.311 Chronic venous hypertension (idiopathic) with ulcer of right lower extremity (principal); L97.812 Non-pressure chronic ulcer of other part of right lower leg with fat layer exposed; I87.8 Other specified disorders of veins; J45.909 Unspecified asthma, uncomplicated; Z87.891 Personal history of nicotine dependence; Z98.890 Other specified postprocedural states; Z79.899 Other long term (current) drug therapy

== ENCOUNTER 2021-12-28 09:19 | Outpatient (CLI) | payer MEDICARE ==
[2021-12-28] MEDS ORDERED: LIDOCAINE (4%) 40 MG/ML TOPICAL SOLN 50 ML BOTTLE TP ONE (09:56)
== END 2021-12-28 09:20 | disposition home or self-care (01) ==
LOC: WOUND 09:19
PROVIDERS: ATTEND Surgery
DX: I87.311 Chronic venous hypertension (idiopathic) with ulcer of right lower extremity (principal); L97.812 Non-pressure chronic ulcer of other part of right lower leg with fat layer exposed; J45.909 Unspecified asthma, uncomplicated; Z98.890 Other specified postprocedural states; Z87.891 Personal history of nicotine dependence; Z79.899 Other long term (current) drug therapy

== ENCOUNTER 2022-01-04 09:00 | Outpatient (CLI) | payer MEDICARE ==
[2022-01-04] MEDS ORDERED: LIDOCAINE (4%) 40 MG/ML TOPICAL SOLN 50 ML BOTTLE TP ONE (10:50)
== END 2022-01-04 09:01 | disposition home or self-care (01) ==
LOC: WOUND 09:00
PROVIDERS: ATTEND Surgery
DX: I87.311 Chronic venous hypertension (idiopathic) with ulcer of right lower extremity (principal); L97.812 Non-pressure chronic ulcer of other part of right lower leg with fat layer exposed; J45.909 Unspecified asthma, uncomplicated; Z98.890 Other specified postprocedural states; Z87.891 Personal history of nicotine dependence; Z79.899 Other long term (current) drug therapy

== ENCOUNTER 2022-01-18 09:47 | Outpatient (CLI) | payer MEDICARE ==
[2022-01-18] MEDS ORDERED: LIDOCAINE (4%) 40 MG/ML TOPICAL SOLN 50 ML BOTTLE TP ONE (10:19)
== END 2022-01-18 09:48 | disposition home or self-care (01) ==
LOC: WOUND 09:47
PROVIDERS: ATTEND Surgery
DX: I87.311 Chronic venous hypertension (idiopathic) with ulcer of right lower extremity (principal); L97.812 Non-pressure chronic ulcer of other part of right lower leg with fat layer exposed; J45.909 Unspecified asthma, uncomplicated; Z98.890 Other specified postprocedural states; Z87.891 Personal history of nicotine dependence; Z79.899 Other long term (current) drug therapy

== ENCOUNTER 2022-01-25 09:00 | Outpatient (CLI) | payer MEDICARE ==
[2022-01-25] MEDS ORDERED: LIDOCAINE (4%) 40 MG/ML TOPICAL SOLN 50 ML BOTTLE TP ONE (09:50)
== END 2022-01-25 09:01 | disposition home or self-care (01) ==
LOC: WOUND 09:00
PROVIDERS: ATTEND Surgery
DX: I87.311 Chronic venous hypertension (idiopathic) with ulcer of right lower extremity (principal); L97.812 Non-pressure chronic ulcer of other part of right lower leg with fat layer exposed; J45.909 Unspecified asthma, uncomplicated; Z98.890 Other specified postprocedural states; Z87.891 Personal history of nicotine dependence; Z79.899 Other long term (current) drug therapy
CPT/HCPCS: 29581

== ENCOUNTER 2022-02-01 09:02 | Outpatient (CLI) | payer MEDICARE ==
[2022-02-01] MEDS ORDERED: LIDOCAINE (4%) 40 MG/ML TOPICAL SOLN 50 ML BOTTLE TP ONE (09:39)
== END 2022-02-01 09:03 | disposition home or self-care (01) ==
LOC: WOUND 09:02
PROVIDERS: ATTEND Surgery
DX: I87.311 Chronic venous hypertension (idiopathic) with ulcer of right lower extremity (principal); L97.812 Non-pressure chronic ulcer of other part of right lower leg with fat layer exposed; J45.909 Unspecified asthma, uncomplicated; Z87.891 Personal history of nicotine dependence; Z98.890 Other specified postprocedural states; Z79.899 Other long term (current) drug therapy
CPT/HCPCS: 29581

== ENCOUNTER 2022-02-08 08:55 | Outpatient (CLI) | payer MEDICARE ==
[2022-02-08] MEDS ORDERED: LIDOCAINE (4%) 40 MG/ML TOPICAL SOLN 50 ML BOTTLE TP SCH (09:00)
== END 2022-02-08 08:56 | disposition home or self-care (01) ==
LOC: WOUND 08:55
PROVIDERS: ATTEND Surgery
DX: I87.311 Chronic venous hypertension (idiopathic) with ulcer of right lower extremity (principal); L97.812 Non-pressure chronic ulcer of other part of right lower leg with fat layer exposed; L97.212 Non-pressure chronic ulcer of right calf with fat layer exposed; J45.909 Unspecified asthma, uncomplicated; Z87.891 Personal history of nicotine dependence; Z98.890 Other specified postprocedural states; Z79.899 Other long term (current) drug therapy
CPT/HCPCS: 29581

== ENCOUNTER 2022-02-22 09:08 | Outpatient (CLI) | payer MEDICARE ==
[2022-02-22] MEDS ORDERED: LIDOCAINE (4%) 40 MG/ML TOPICAL SOLN 50 ML BOTTLE TP ONE (09:12)
== END 2022-02-22 09:09 | disposition home or self-care (01) ==
LOC: WOUND 09:08
PROVIDERS: ATTEND Surgery
DX: I87.311 Chronic venous hypertension (idiopathic) with ulcer of right lower extremity (principal); L97.812 Non-pressure chronic ulcer of other part of right lower leg with fat layer exposed; L97.212 Non-pressure chronic ulcer of right calf with fat layer exposed; J45.909 Unspecified asthma, uncomplicated; Z87.891 Personal history of nicotine dependence; Z98.890 Other specified postprocedural states; Z79.899 Other long term (current) drug therapy

== ENCOUNTER 2022-03-01 09:20 | Outpatient (CLI) | payer MEDICARE ==
[2022-03-01] MEDS ORDERED: LIDOCAINE (4%) 40 MG/ML TOPICAL SOLN 50 ML BOTTLE TP ONE (10:45)
== END 2022-03-01 09:21 | disposition home or self-care (01) ==
LOC: WOUND 09:20
PROVIDERS: ATTEND Surgery
DX: I87.311 Chronic venous hypertension (idiopathic) with ulcer of right lower extremity (principal); L97.812 Non-pressure chronic ulcer of other part of right lower leg with fat layer exposed; J45.909 Unspecified asthma, uncomplicated; Z87.891 Personal history of nicotine dependence; Z98.890 Other specified postprocedural states; Z79.899 Other long term (current) drug therapy
CPT/HCPCS: 29580; 99212; G0463

== ENCOUNTER 2022-03-08 09:13 | Outpatient (CLI) | payer MEDICARE ==
[2022-03-08] MEDS ORDERED: LIDOCAINE (4%) 40 MG/ML TOPICAL SOLN 50 ML BOTTLE TP SCH (10:00)
== END 2022-03-08 09:14 | disposition home or self-care (01) ==
LOC: WOUND 09:13
PROVIDERS: ATTEND Surgery
DX: I87.311 Chronic venous hypertension (idiopathic) with ulcer of right lower extremity (principal); L97.812 Non-pressure chronic ulcer of other part of right lower leg with fat layer exposed; J45.909 Unspecified asthma, uncomplicated; Z87.891 Personal history of nicotine dependence; Z98.890 Other specified postprocedural states; Z79.899 Other long term (current) drug therapy

== ENCOUNTER 2022-03-15 08:56 | Outpatient (CLI) | payer MEDICARE ==
[2022-03-15] MEDS ORDERED: LIDOCAINE (4%) 40 MG/ML TOPICAL SOLN 50 ML BOTTLE TP ONE (09:24)
== END 2022-03-15 08:57 | disposition home or self-care (01) ==
LOC: WOUND 08:56
PROVIDERS: ATTEND Surgery
DX: I87.311 Chronic venous hypertension (idiopathic) with ulcer of right lower extremity (principal); L97.812 Non-pressure chronic ulcer of other part of right lower leg with fat layer exposed; J45.909 Unspecified asthma, uncomplicated; Z87.891 Personal history of nicotine dependence; Z98.890 Other specified postprocedural states; Z79.899 Other long term (current) drug therapy